=== PATIENT | female | born 2005 | race Two or more races ===

== ENCOUNTER 2024-10-27 08:15 | Outpatient (RCR) | payer MEDICAID, SELFPAY ==
--- NOTE | 2024-10-20 09:01 | XR_ITS ---
Examination: Biophysical profile, ultrasound Date and time of exam: October 20, 2024 at 0927 hrs. Indications: Hypothyroid on laboratory examination, diagnosis elevated BMI Technique: Multiple transabdominal sonographic images of the pelvis abdomen obtained. Attention is directed to the breathing movement, gross body movement, amniotic fluid volume and tone. Findings: Amniotic fluid index 9.7 cm Total biophysical profile is 8 of 8. breathing movement is 2. Gross body movement is 2. tone is 2. Qualitative amniotic fluid volume is 2 Impression: Biophysical profile is 8 of 8.
[2024-10-20 09:52] VITALS: BP 112/75; PULSE 85; RESP 16; TEMP 36.8
--- NOTE | 2024-10-27 08:25 | XR_ITS ---
Examination: Biophysical profile, ultrasound Date and time of exam: October 0842 hours INDICATIONS: Diagnosis hypothyroidism, diagnosis elevated BMI Technique: Multiple transabdominal sonographic images of the pelvis abdomen obtained. Attention is directed to the breathing movement, gross body movement, amniotic fluid volume and tone. Findings: Amniotic fluid index 18.3 cm Total biophysical profile is 8 of 8. breathing movement is 2. Gross body movement is 2. tone is 2. Qualitative amniotic fluid volume is 2 Impression: Biophysical profile is 8 of 8.
[2024-10-27 08:57] VITALS: BP 106/66; PULSE 60; RESP 19; TEMP 36.8
== END 2024-10-27 23:59 | disposition home or self-care (01) ==
LOC: S4S1 08:15
PROVIDERS: PCP Nurse Practitioner Women's Health; Referring Provider Nurse Practitioner Women's Health; Visit Provider Nurse Practitioner Women's Health
DX: O99.283 Endocrine, nutritional and metabolic diseases complicating pregnancy, third trimester (principal); E03.9 Hypothyroidism, unspecified; Z3A.38 38 weeks gestation of pregnancy
CPT/HCPCS: 59025; 76819

== ENCOUNTER 2024-10-28 21:30 | Inpatient (IN) | payer MEDICAID, SELFPAY ==
[2024-10-28 21:33] VITALS: BP 122/79; PULSE 96; TEMP 37
[2024-10-28 21:50] VITALS: BP 122/79; PULSE 96; RESP 18; RESP 98; TEMP 37.1
[2024-10-28 21:51] VITALS: BMI 44.5
[2024-10-28 22:47] VITALS: BP 106/61; PULSE 94
[2024-10-28 22:47] LABS: Basophils % (Auto) 0 % (0-2.5); Eosinophils # (Auto) 0.1 Thou/mm3 (0.0-0.5); Eosinophils % (Auto) 0 % (0-10); Hematocrit 30.7 % (36.0-46.0); Immature Granulocytes % (Auto) 1 % (0-0); Immature Granulocytes Auto 0.09 Thou/mm3 (0.00-0.00); Lymphocytes # (Auto) 2.8 Thou/mm3 (1.0-4.8); Lymphocytes % (Auto) 19 % (10-50); Mean Corpuscular HGB Conc 32.6 g/dl (31.0-37.0); Mean Corpuscular Hemoglobin 25.1 pg (25.0-35.0); Mean Corpuscular Volume 77 fL (80-100); Monocytes # (Auto) 0.9 Thou/mm3 (0.0-0.8); Monocytes % (Auto) 6 % (0-12); Neutrophils # (Auto) 10.6 Thou/mm3 (1.8-7.7); Neutrophils % (Auto) 73 % (37-80); Nucleated Red Blood Cell % 0 /100 WBC (0); Platelet Count 330 Thou/mm3 (140-440); RDW Standard Deviation 39.9 fL (36.4-46.3); Red Blood Count 3.99 Miln/mm3 (4.00-5.20); White Blood Count 14.4 Thou/mm3 (3.6-11.0)
[2024-10-28 23:00] VITALS: RESP 18; TEMP 37.2
[2024-10-28 23:33] LABS: Syphilis Nonreactive (Nonreactive)
[2024-10-28 23:58] VITALS: RESP 18; TEMP 37.2
[2024-10-29] VITALS (108 sets, daily range): BP systolic 74–178; BP diastolic 40–130; PULSE 73–144; RESP 17–23; TEMP 36.5–39; O2SAT 91–100
--- NOTE | 2024-10-29 01:09 | ESHP_ITS ---
Documentation for date of: 10/29/24 OB Labor/Induct. HPI History of Present Illness : 2 Para: 0 Term pregnancies: 0 pregnancies: 0 Living children: 0 History of Abortions: Spontaneous and Elective: 1 History of Vaginal deliveries: 0 History of sections: No History of : No BLAIRE: 11/10/24 Gestational Age (weeks): 38 Gestational Age (days): 2 History of present illness: Patient presents for loss of fluid, clear, that occurred at 1440 on 10/28/24. No regular/painful ctx. No vaginal bleeding. Normal movement. No fevers/chills. History of Present Dating criteria: based on 1st trimester US only Adequate Care: Yes Ultrasounds: normal mid trimester US Obstetrical complications: other (BMI 37, hypothyroidism on levothyroxine) Labs Labs: Positive: Rubella Titre and Negative: RPR, Hepatitis B, HIV, Chlamydia, Gonorrhea and Group Beta Strep Review of Systems Review of Systems Narrative Review of Systems: Review of Systems Systems Reviewed: All systems reviewed, normal except as documented Constitutional Constitutional: Denies body ache(s), Denies chills, Denies fever(s) and Denies headache(s) ENT Ears, Nose, Mouth, and Throat: Denies headache(s) and Denies vertigo Cardiovascular Cardiovascular: Denies chest pain, Denies palpitations, Denies dyspnea and Denies syncope Respiratory Respiratory: Denies cough, Denies dyspnea Gastrointestinal Gastrointestinal: Denies nausea and Denies vomiting Neurologic Neurologic: Denies convulsions, Denies headache(s), Denies other visual disturbances, Denies syncope and Denies vertigo Past Medical History Family History OTHER FAMILY HX: mother had breast cancer Surgical History SURGICAL: Negative Section OTHER SURGICAL HX: denies any Social History SOCIAL: No tobacco/ETOH/illicit drug use Past Medical History Comments PMH COMMENT: BMI 37 Hypothyroidism on levothyroxine Anemia Vitamin D deficiency Hyperlipidemia Hx of chlamydia 2021 Meds Home Medications and Allergies Home Medications ?Medication ?Instructions ?Recorded ?Confirmed ?Type folic acid 1 mg tablet 1 mg PO QDAY 10/20/24 History levothyroxine 25 mcg tablet 25 mcg PO QDAY hypothyroid ism 10/20/24 10/28/24 History vits no.130-ferrous fum 1 tab PO QDAY 10/20/2 5 10/28/24 History 27 mg iron-folic acid 800 mcg tablet ( Vitamin) Allergies Allergy/AdvReac Type Severity Reaction Status Date / Time No Known Allergies Allergy Verified 10/20/24 09:51 OB Exam Physical Exam Vital signs: Temp Pulse Resp BP 99 F 79 18 129/75 10/29/24 00:01 10/29/24 00:00 10/29/24 00:01 10/29/24 00:00 Narrative: General: well developed, well nourished, no acute distress, conversant Cardiac: normal heart rate Lungs: breathing without distress Abdomen: soft, gravid, non-tender, no rebound or guarding Extremities: no pain with palpation of calves Detailed Labor and Delivery Exam Dilation (cm): 2 Effacement (%): 50 Cervix position: posterior station: -3 Consistency: soft Presentation: Vertex Membranes: ruptured Amniotic fluid: clear monitor accelerations: 15x15 monitor decelerations: None terminologist variability: Moderate (11-25) Contraction frequency (min): irregular OB Results Labs 10/28/24 22:19 Labs: Short CBC 10/28/24 Range/Units 22:19 WBC 14.4 H (3.6-11.0) Thou/mm3 Hgb 10.0 L (12.0-16.0) g/dL Hct 30.7 L (36.0-46.0) % Plt Count 330 (140-440) Thou/mm3 OB Assessment & Plan Assessment and Plan (1) PROM (premature rupture of membranes): Status: Acute Assessment and plan: Kay is a 19yo with SIUP at 38&2wk presenting with PROM, clear at 1440 on 10/28/24. Amnisure positive. Irregular ctx. SCE: 50/-3. Vitals wnl, benign exam. Reassuring assessment. care with [facility]. Incomplete records in chart were reviewed. Normal glucose testing. PMhx/ complicated by: Obesity, starting BMI 37 Hypothyroidism since 2021, taking levothyroxine 25mcg QD Plan: -Admit to L&D -Establish IV, routine labs. -CEFM -Clear liquid diet -Survey Superintendent/consent re: and augmentation of labor -GBS status: negative -Anticipate -Safe to proceed (2) Obesity affecting : Status: Acute (3) Hypothyroid in , antepartum: Status: Acute (1) PROM (premature rupture of membranes) Qualifiers: PROM gestational age: full term PROM onset of labor timing: unspecified duration between rupture of membranes and onset of labor Qualified Code(s): O 42.92 - Full-term premature rupture of membranes, unspecified as to length of time between rupture and onset of labor (2) Obesity affecting Qualifiers: Obesity type affecting : unspecified obesity Trimester: third trimester Qualified Code(s): O99.213 - Obesity complicating , third trimester
[2024-10-29] MEDS: RINGERS LACTATED 1000 ML 1,000 ML 100 ML IV ×4 (01:42→07:29)
[2024-10-29] MEDS: MISOPROSTOL 50 mCg TABLET PO (02:14)
[2024-10-29 04:00] LABS: HIV (1&2) Antibody Rapid Non-Reactive
[2024-10-29] MEDS: Ampicillin Inj 2,000 MG in SODIUM CHLORIDE 0.9% (POP) 100 ML 200 MG IV ×3 (08:07→19:45)
[2024-10-29] MEDS: LEVOTHYROXINE SODIUM 25 MCG TABLET PO (08:08)
[2024-10-29] MEDS: ACETAMINOPHEN IVPB 1,000 MG/100 ML VIAL 250 MG IV (08:19)
--- NOTE | 2024-10-29 08:58 | PD.LDPN ---
Documentation for date of: 10/29/24 OB Labor Progress Note Pain Control Pain control: epidural Pelvic Exam Dilation (cm): 4 Effacement (%): 90 station: 0 Amniotic membrane status: Ruptured Contractions Monitor mode: Internal Contraction frequency: 1-3 Contraction duration: 40-60 Contraction phase: Contraction Contraction intensity: Moderate Status status: Category ll Comments: Fetus is tachycardia FHT 180s Assessment and Plan Assessment: induction ongoing Plan OB labor note: continuous present management Comments: Pt is prolonged ruptured, and has a fever 102.2 Ordered tylenol 1000mg IV x1 and Ampicillin 2g Q 6 and Gentamicin per pharmacy to dose. Placed internal monitors FSE and IUPC Cooling measures are initiated Anticipate Dr. Garnett updated
--- NOTE | 2024-10-29 09:32 | PD.LDPN ---
Documentation for date of: 10/29/24 OB Labor Progress Note Pain Control Pain control: epidural Pelvic Exam Dilation (cm): 4 Effacement (%): 90 station: 0 Amniotic membrane status: Ruptured Contractions Monitor mode: Internal Contraction frequency: 1-3 Contraction duration: 40-60 Contraction phase: Contraction Contraction intensity: Moderate Status status: Category ll Assessment and Plan Assessment: induction ongoing Plan OB labor note: Comments: Pt continues to have recurrent late decelerations Dr. Garnett updated and Dr. Garnett is on her way to perform C/S Discussed POC with pt, she understands and consents Handoff to Dr. Garnett
[2024-10-29] MEDS: TERBUTALINE SULF INJ 1 MG/ML VIAL 0.25 MG SC (09:43)
[2024-10-29] MEDS: FAMOTIDINE INJ 10 MG/ML VIAL 2 ML 20 MG IV (09:49)
[2024-10-29] MEDS: ceFAZolin/D5W 2 GM IV 2 GM/100 ML BAG IV (09:49)
[2024-10-29] MEDS: METOCLOPRAMIDE INJ 5 MG/ML VIAL 2 ML 10 MG IVP (09:49)
--- NOTE | 2024-10-29 10:56 | PD.LDPN ---
Documentation for date of: 10/29/24 OB Labor Progress Note Pain Control Comments: epidural Pelvic Exam Dilation (cm): 4 Effacement (%): 90 station: 0 Amniotic membrane status: Ruptured Comments: I got a call from KOBY Soliz at 09.05 am about this patient developing a fever and having recurrent variable deceleration , Accelerations were reported to be present and moderate variability.It was reported that position changes and Internals are placed , amnioinfusion is gpoing to start and bolus is given. I looked at the strip myself to follow up at 9.25 to see if resuscitation had worked , to find out that the patient was having recurrent late deceleration with tachysystole.Icalled Heydi WHALEN at 09.28 and Csection was called ,I was told terbutaline is ordered. Azithromysin was ordered and within 30 minutes Csection was called Contractions Monitor mode: Internal Contraction frequency: 1-3 Contraction phase: Contraction Contraction intensity: Moderate Status status: Category ll
[2024-10-29] MEDS: OXYTOCIN in NS 20 units 20 UNIT/1,000 ML BAG 125 UNIT IV (11:38)
[2024-10-29] MEDS: CLINDAMYCIN 900MG IVPB 900 MG in PRE-MIXED 1 BAG 50 MG IV ×2 (13:20→22:13)
[2024-10-29 17:31] LABS: Basophils % (Auto) 0 % (0-2.5); Eosinophils # (Auto) 0.1 Thou/mm3 (0.0-0.5); Eosinophils % (Auto) 0 % (0-10); Hematocrit 26.6 % (36.0-46.0); Immature Granulocytes % (Auto) 1 % (0-0); Immature Granulocytes Auto 0.16 Thou/mm3 (0.00-0.00); Lymphocytes # (Auto) 1.3 Thou/mm3 (1.0-4.8); Lymphocytes % (Auto) 5 % (10-50); Mean Corpuscular HGB Conc 32.7 g/dl (31.0-37.0); Mean Corpuscular Hemoglobin 25.1 pg (25.0-35.0); Mean Corpuscular Volume 77 fL (80-100); Monocytes # (Auto) 1.2 Thou/mm3 (0.0-0.8); Monocytes % (Auto) 5 % (0-12); Neutrophils # (Auto) 22.5 Thou/mm3 (1.8-7.7); Neutrophils % (Auto) 89 % (37-80); Nucleated Red Blood Cell % 0 /100 WBC (0); Platelet Count 262 Thou/mm3 (140-440); RDW Standard Deviation 41.1 fL (36.4-46.3); Red Blood Count 3.46 Miln/mm3 (4.00-5.20); White Blood Count 25.3 Thou/mm3 (3.6-11.0)
[2024-10-29 17:38] LABS: Hemoglobin 8.7 g/dL (12.0-16.0)
[2024-10-29 18:02] LABS: Band Neutrophils (Manual) 32 % (0-6); Lymphocytes (Manual) 5 % (20-44); Metamyelocytes (Manual) 1 % (0-0); Monocytes (Manual) 2 % (2-9); Neutrophils (Manual) 60 % (50-70)
[2024-10-29] MEDS: ACETAMINOPHEN 325 MG TABLET 650 MG PO (20:37)
--- NOTE | 2024-10-29 21:37 | PD.GYNPROC ---
Operative Note - ADMINISTRATIVE TECHNICIAN Procedure Date of procedure: 10/29/24 Procedure Performed: primary c section Indication: category 2 FHT recurrent late deceleration, unresponsive to resuscitation Prolonged rupture of mebranes presuptive chorioamnionitis Pre-Op diagnosis: same Post-Op diagnosis: same Anesthesia type: Spinal Procedure description: Informed consent was obtained and the patient was taken to the operating room.? Identity was confirmed by double identifiers and she was placed on the operating table.The abdomen and perineum were prepped in the usual sterile fashion and a Griggs catheter was placed to continuous drainage.? Sterile drapes were applied.??A Pfannenstiel skin incision was made with a scalpel and carried to the subcutaneous fat up to the rectus fascia.? The rectus fascia was incised on either side of the midline and the incisions were extended bilaterally.? The fascia was gently dissected off the ventral surface of the rectus muscle both superiorly and inferiorly. Carefully a peritioneal window created hysterotomy incision made and extended bluntly with finger. Rupture of membranes revealed clear fluid. The baby was found vertex presentation and was delivered via vertex. The umbilical cord , was doubly clamped, divided and the was handed over to the waiting team . The placenta delivered by controlled cord traction . The interior of the uterus was now thorougly cleaned of all blood and debris and membranes.?The? hysterotomy was closed using 0 vicryl suture in double layers. Once the repair was completed the hysterotomy was inspected, was noted to be adequately hemostatic. The rectus fascia was repaired using Vicryl 0 in a running fashion.? The subcutaneous layer was now, approximated with 3-0 vicryl in double layers.? All bleeding points were cauterized using the Bovie.?The skin was closed using 4-0 Monocryl in a subcuticular fashion.? The skin was cleaned and a sterile dressing was applied. The patient was now undraped, the abdomen and back were thoroughly cleaned and she was now transferred to the recovery room in a stable Estimated blood loss (ml): 500 Surgical staff Operation Date: 10/29/24 10:15 Case Staff PRODUCTION BOW MAKER: Jacob Morillo RN First Assistant: Tiffanie Walter Diagnosis Problem List Completed Was Problem List Reviewed/Reconciled?: Yes
--- NOTE | 2024-10-29 21:39 | OBDSUM_ITS ---
Data (King) Data Hx Section: No : 2 Para: 0 Term: 0 : 0 : 1 Delivery Data (King) Labor Data ROM Date: 10/28/24 ROM Time: 14:40 Rupture Type: SROM Amniotic Fluid: Clear Delivery Data Labor Onset Stage 1 Date: 10/29/24 Labor Onset Stage 1 Time: 07:20 Labor Onset Stage 2 Date: 10/29/24 Labor Onset Stage 2 Time: 10:13 Delivery Date: 10/29/24 Delivery Time: 10:13 Gestational age (weeks): 38 Gestational age (days): 2 Placenta Delivery Date: 10/29/24 Placenta Delivery Time: 10:14 Delivered by: Elizabeth Garnett Delivery nurse: Nicci Phillips Other staff at delivery: Nurse Other staff at delivery: 2nd Nurse Other staff at delivery: Other staff at delivery: Conchita Peterson Other staff at delivery: Mary Christianson Other staff at delivery: [email or web address] Delivery Method Delivery: Delivery Type: Primary Anesthesia Type Primary Anesthesia: Epidural Placenta Cord Sample: Cord Blood Obtained, Cord Gases Arterial and Cord Gases Venous EBL Estimated blood loss (ml): 500 [place] Data (King) [place] Data Gender: Male Infant Weight Grams: 3225 1 Minute Total: 3 5 Minute Total: 8 10 Minute Total: 9
--- NOTE | 2024-10-29 21:54 | PC.NURSE ---
Notified Dr. Garnett of pts low grade fever 100.2 and 100.0 1 hour post tylenol. IV Toradol okayed and morning CBC ordered.
[2024-10-29] MEDS: KETOROLAC INJ 30 MG/ML VIAL IVP (22:13)
[2024-10-29 22:29] LABS: Gentamicin, Random 1.7 mcg/mL (4.0-10.0)
--- NOTE | 2024-10-29 22:48 | EKG_ITS ---
[facility] Test Date: 2024-10-29 Pat Name: KEL REDDY [facility] Flat Lock Operator: DANNA : 2005 Requested By: Elizabeth Garnett Order Number: [id number] Reading MD: Elizabeth Garnett Measurements Intervals Clifford Rate: 111 P: 31 ID: [id number] QRS: 19 QRSD: 91 T: -4 QT: 310 QTc: 423 Interpretive Statements SINUS TACHYCARDIA ABNORMAL RHYTHM ECG No previous ECG available for comparison /[id number]
--- NOTE | 2024-10-29 22:49 | XR_ITS ---
Examination: AP chest single view Technique one AP portable upright chest single view Exam date and time: March 31, 2025 1109 hours Indications: Sepsis today Findings: Normal heart size No pneumonia identified. The osseous structures are intact Impression: No active disease
[2024-10-29] MEDS: SODIUM CHLORIDE 0.9% 1000 ML 1,000 ML 999 ML IV (22:50)
[2024-10-29 23:18] LABS: Lactate (Lactic Acid) 1.2 mMol/L (0.4-2.0)
[2024-10-29 23:29] LABS: Basophils # (Auto) 0.1 Thou/mm3 (0.0-0.2); Basophils % (Auto) 0 % (0-2.5); Eosinophils % (Auto) 0 % (0-10); Hematocrit 24.4 % (36.0-46.0); Immature Granulocytes % (Auto) 1 % (0-0); Immature Granulocytes Auto 0.32 Thou/mm3 (0.00-0.00); Lymphocytes # (Auto) 1.7 Thou/mm3 (1.0-4.8); Lymphocytes % (Auto) 7 % (10-50); Mean Corpuscular HGB Conc 32.8 g/dl (31.0-37.0); Mean Corpuscular Hemoglobin 25.3 pg (25.0-35.0); Mean Corpuscular Volume 77 fL (80-100); Monocytes # (Auto) 1.2 Thou/mm3 (0.0-0.8); Monocytes % (Auto) 5 % (0-12); Neutrophils # (Auto) 22.2 Thou/mm3 (1.8-7.7); Neutrophils % (Auto) 87 % (37-80); Nucleated Red Blood Cell % 0 /100 WBC (0); Platelet Count 311 Thou/mm3 (140-440); RDW Standard Deviation 41.9 fL (36.4-46.3); Red Blood Count 3.16 Miln/mm3 (4.00-5.20); White Blood Count 25.5 Thou/mm3 (3.6-11.0)
[2024-10-29 23:48] LABS: Collection Type, Urine Catheter; Squamous Epithelial Cell,Urine 0 /hpf (0-5)
[2024-10-29 23:55] LABS: B-Type Natriuretic Peptide 238 pg/mL (0-100)
[2024-10-29 23:56] LABS: Bilirubin,Urine Negative (Negative); Blood,Urine Negative (Negative); Clarity,Urine Clear (Clear/Hazy); Color,Urine Yellow (Lt Yel-Yel); Glucose, Urine Negative (Negative); Ketones,Urine Negative (Negative); Leukocyte Esterase,Urine Negative (Negative); Nitrite,Urine Negative (Negative); PH,Urine 6.5 (5.0-7.0); Protein,Urine Trace (Neg - Trace); RBC,Urine 3 /hpf (0-3); Specific Gravity,Urine 1.015 (1.001-1.035); WBC,Urine 2 /hpf (0-5)
[2024-10-29 23:57] LABS: Alanine Aminotransferase < 7 U/L (10-49); Albumin, Serum 2.7 gm/dL (3.5-5.0); Albumin/Globulin Ratio 1.3 (1.2-2.2); Alkaline Phosphatase 133 U/L (46-116); Anion Gap 8 (7-16); Aspartate Amino Transferase 18 U/L (0-34); BUN/Creatinine Ratio 12 Ratio (12-20); Bilirubin,Total 0.5 mg/dL (0.3-1.2); Blood Urea Nitrogen 7 mg/dL (9-23); Calcium 7.6 mg/dL (8.3-10.6); Calcium (Corrected) 8.6 mg/dL (8.5-10.1); Carbon Dioxide 21.4 mMol/L (20.0-31.0); Chloride 107 mMol/L (98-107); Creatinine (Component) 0.6 mg/dL (0.6-1.3); Estimated Creatinine Clearance 160.8 mL/min (>60); Globulin 2.1 gm/dL (2.3-3.5); Glucose 89 mg/dL (74-106); Osmolality,Calculated 268 (275-295); Potassium 3.7 mMol/L (3.4-5.1); Sodium 136 mMol/L (136-145); Total Protein 4.8 gm/dL (5.7-8.2); eGFR > 60 See Note
[2024-10-30] VITALS (16 sets, daily range): BP systolic 91–112; BP diastolic 56–82; PULSE 91–112; RESP 18–19; TEMP 36.7–37.8; O2SAT 97–100
[2024-10-30 00:03] LABS: Troponin I 0.084 ng/mL (0.0-0.045)
[2024-10-30] MEDS: SODIUM CHLORIDE 0.9% 1000 ML 1,000 ML 100 ML IV (00:15)
--- NOTE | 2024-10-30 01:27 | ESCONSULT_ITS ---
HPI Data of Consult Requesting Physician: Elizabeth Garnett MD Admitting Provider: Mary Mabry MD Attending Provider: Elizabeth Garnett MD Primary Care Provider: Physician No Primary/Family Consult Narrative Reason for consult: Elevated troponin History of present illness: HPI:A 19-year-old female patient 2 para 0 and known case of any medical condition except hypothyroidism which she takes levothyroxine 25 mcg was admitted to the [facility] yesterday patient undergone due to premature rupture of membrane for prolonged duration associated with maternal sepsis and distress despite the resuscitation by the [employer] [facility] doctors. At 12 AM 10/30/2024 rapid response was called for the patient and was found to have maternal sepsis with body temperature of 100.5, heart rate of 121 bpm blood pressure of 101/67. Patient was on triple antibiotics was given clindamycin, ampicillin, gentamicin. Upon sepsis workup patient was noted to have high WBCs of 25.5, hemoglobin of 8.0 which is stable since yesterday, platelets 311 noticed to have increased total bilirubin to 0.084 and BNP of 238. For that reason, we were consulted for elevated cardiac enzyme. On questioning patient denied any chest pain, shortness of breath, palpitation, lower extremities edema and denied any exertional dyspnea in the past. Patient does not have any family history of sudden cardiac and denied any cardiac disorders among family members. Patient medications only levothyroxine. Her current medication at this time is acetaminophen, ampicillin, clindamycin, gentamicin, levothyroxine, oxytocin PMH: As above PSX: yesterday PFX: No cardiac incidents among family members Social hx: Alcohol: Denied Tobacco: Denied Illicit drugs: Denied Allergies: No known allergies cc:: cc: Elizabeth Garnett MD Review of Systems Review of Systems Systems Reviewed: All systems reviewed, normal except as documented Exam Vital Signs Temp Pulse Resp BP Pulse Ox O2 Del Method O2 Flow Rate 98.9 F 103 H 19 91/56 L 98 Room Air 0 10/30/24 00:43 10/30/24 00:43 10/30/24 00:43 10/30/24 00:43 10/30/24 00:43 10/30/24 00:43 10/29/24 22:43 FiO2 0 10/29/24 22:43 Narrative Exam GEN: AOx3, able to speak full sentences, lying in bed comfortably HEENT: NC/AC, oral mucosa moist, neck supple CVS: RRR, S1-S2 present, no murmurs appreciated RESP: CTAB GI: surgical scar clean, soft,non distended, non tender, NBS MSK: able to move all 4 limbs, no lower extremity edema SKIN: warm and dry SAFETY TECHNICIAN: CN II-XII and Sensation grossly intact. Results Labs 10/29/24 22:59 10/29/24 22:59 Labs: Short CBC 10/29/24 10/29/24 Range/Units 17:16 22:59 WBC 25.3 H D 25.5 H (3.6-11.0) Thou/mm3 Hgb 8.7 L 8.0 L (12.0-16.0) g/dL Hct 26.6 L 24.4 L (36.0-46.0) % Plt Count 262 D 311 D (140-440) Thou/mm3 BMP 10/29/24 22:59 Sodium 136 Potassium 3.7 Chloride 107 Carbon Dioxide 21.4 BUN 7 L Creatinine 0.6 Glucose 89 Calcium 7.6 L Cardiac Enzymes 10/29/24 Range/Units 22:59 Troponin I 0.084 H* (0.0-0.045) ng/mL Liver Function 10/29/24 Range/Units 22:59 Total Bilirubin 0.5 (0.3-1.2) mg/dL AST 18 (0-34) U/L ALT < 7 L (10-49) U/L Alkaline Phosphatase 133 H (46-116) U/L Albumin 2.7 L (3.5-5.0) gm/dL Urine 10/29/24 Range/Units 23:25 Urine Color Yellow (Lt Yel-Yel) Urine Clarity Clear (Clear/Hazy) Urine pH 6.5 (5.0-7.0) Ur Specific [place] 1.015 (1.001-1.035) Urine Protein Trace (Neg - Trace) Urine Glucose (UA) Negative (Negative) Quality Measures Quality Measures sepsis Current suspected stage: sepsis Possible source: genitourinary Blood cultures ordered: yes Antibiotic ordered: Yes Medications Home Medications and Allergies Home Medications ?Medication ?Instructions ?Recorded ?Confirmed ?Type folic acid 1 mg tablet 1 mg PO QDAY 10/20/24 History levothyroxine 25 mcg tablet 25 mcg PO QDAY hypothyroid ism 10/20/24 10/28/24 History vits no.130-ferrous fum 1 tab PO QDAY 10/20/2 5 10/28/24 History 27 mg iron-folic acid 800 mcg tablet ( Vitamin) Allergies Allergy/AdvReac Type Severity Reaction Status Date / Time No Known Allergies Allergy Verified 10/29/24 10:49 Visit Medications Acetaminophen (Acetaminophen 325 Mg Tablet) 650 mg PO Q4H PRN PRN Reason: SEE COMMENTS Stop: 11/28/24 11:01 Last Admin: 10/29/24 20:37 Dose: 650 mg Hydrocodone Bitart/Acetaminophen (Hydrocodone/Apap 5/325 Tablet) 1 tab PO Q4HR PRN PRN Reason: Patient rated pain 7 to 8 Stop: 11/03/24 11:01 Lactated Ringer's (Lactated Ringers) 1,000 mls @ 100 mls/hr IV .Q10H [facility] Stop: 11/27/24 22:29 Last Admin: 10/29/24 07:29 Dose: 100 mls/hr Oxytocin/Sodium Chloride (Pitocin 20 Units In Ns) 20 unit in 1,000 mls @ 125 mls/hr IV .Q8H [facility] Stop: 11/27/24 22:29 Last Admin: 10/29/24 11:38 Dose: 125 mls/hr Ampicillin Sodium 2,000 mg/ (Sodium Chloride) 100 mls @ 200 mls/hr IV Q6HR [facility] Stop: 11/05/24 07:59 Last Admin: 10/29/24 19:45 Dose: 200 mls/hr Gentamicin Sulfate 340 mg/ (Sodium Chloride) 108.5 mls @ 108.5 mls/hr IV QDAY@1000 [facility] Stop: 11/05/24 09:59 Last Admin: 10/29/24 12:11 Dose: 108.5 mls/hr Clindamycin Phosphate 900 mg/ (IV Miscellaneous Supplies) 50 mls @ 50 mls/hr IV Q8HR [facility] Stop: 11/05/24 13:59 Last Admin: 10/29/24 22:13 Dose: 50 mls/hr Acetaminophen (Ofirmev Inj) 1,000 mg in 100 mls @ 250 mls/hr IV Q6H PRN PRN Reason: PAIN SCALE 1-3 (mild Stop: 10/30/24 02:35 Sodium Chloride (Ns) 1,000 mls @ 100 mls/hr IV .Q10H [facility] Stop: 11/29/24 00:09 Ibuprofen (Ibuprofen Tab 400 Mg Tablet) 800 mg PO Q8H PRN PRN Reason: SEE COMMENTS Stop: 11/28/24 11:01 Ketorolac Tromethamine (Ketorolac Inj 30 Mg/Ml Vial) 30 mg IVP Q6HR PRN PRN Reason: BREAKTHROUGH PAIN Stop: 11/03/24 21:49 Last Admin: 10/29/24 22:13 Dose: 30 mg Levothyroxine Sodium (Levothyroxine Sodium 25 Mcg Tablet) 25 mcg PO ACBR [facility] Stop: 11/28/24 05:59 Last Admin: 10/29/24 08:08 Dose: 25 mcg Pharmacy Consult (Pharmacy To Dose Gentamicin) 1 each IV QDAY PRN PRN Reason: CONSULT Stop: 11/28/24 08:59 Discontinued Medications Azithromycin (Azithromycin 250 Mg Tablet) 1,000 mg PO X1 ONE Stop: 10/29/24 10:01 Benzocaine (Benzo/Lano/Aloe (Dermoplast) 60 Gm Can) 1 spray TOP PRN PRN PRN Reason: PERINEAL DISCOMFORT Stop: 11/27/24 22:23 Diphtheria/Tetanus/Acell Pertussis (Diphth,Pertuss(Acell),Tet Vac 0.5 Ml Syr- Adult) 0.5 ml IMi .ONCE ONE Stop: 10/29/24 11:03 Famotidine (Famotidine Inj 10 Mg/Ml Vial 2 Ml) 20 mg IV X1 ONE Stop: 10/29/24 09:32 Last Admin: 10/29/24 09:49 Dose: 20 mg Fentanyl Citrate (Fentanyl Cit Inj 50 Mcg/Ml Amp 2ml) 100 mcg IV Q1HR PRN PRN Reason: PAIN SCALE 4-6 (Moderate Stop: 11/02/24 22:23 Lactated Ringer's (Lactated Ringers) 500 mls @ 999 mls/hr IV .Q31M PRN PRN Reason: HR tracing (Per Policy) Stop: 11/27/24 22:23 Tranexamic Acid (Tranexamic Acid Ivpb) 1,000 mg in 100 mls @ 200 mls/hr IV [id number] PRN PRN Reason: BLEEDING Acetaminophen (Ofirmev Inj) 1,000 mg in 100 mls @ 250 mls/hr IV Q6H [facility] Stop: 10/30/24 02:35 Last Admin: 10/29/24 08:19 Dose: 250 mls/hr Cefazolin Sodium (Ancef 2gm Ivpb) 2 gm in 100 mls @ 200 mls/hr IV X1 ONE Stop: 10/29/24 10:00 Last Admin: 10/29/24 09:49 Dose: 200 mls/hr Acetaminophen (Ofirmev Inj) 1,000 mg in 100 mls @ 250 mls/hr IV Q6H PRN PRN Reason: PAIN SCALE 1-3 (mild Stop: 10/30/24 13:57 Sodium Chloride (Ns) 1,000 mls @ 999 mls/hr IV .Q1H1M ONE Stop: 10/29/24 23:53 Last Admin: 10/29/24 22:50 Dose: 999 mls/hr Ibuprofen (Ibuprofen Tab 400 Mg Tablet) 800 mg PO X1 PRN PRN Reason: uterine cramping Lidocaine HCl (Lidocaine Hcl 1% 20 Ml Vial) 20 ml INFL X1 ONE Stop: 10/28/24 22:25 Measles/Mumps/Rubella Vaccine Live (Measles, Mumps & Rubella Vacc 0.5 Ml Vial) 0.5 ml SCi .ONCE ONE Stop: 10/29/24 11:03 Methylergonovine Maleate (Methylergonovine Inj 0.2 Mg/Ml Vial) 0.2 mg IM X1 PRN PRN Reason: Excessive Bleeding Metoclopramide HCl (Metoclopramide Inj 5 Mg/Ml Vial 2 Ml) 10 mg IVP X1 ONE; Protocol Stop: 10/29/24 09:32 Last Admin: 10/29/24 09:49 Dose: 10 mg Mineral Oil (Mineral Oil 30 Ml Udc) 30 ml TOP PRN PRN PRN Reason: To perineum for delivery. Stop: 11/27/24 22:23 Misoprostol (Misoprostol 200 Mcg Tablet) 800 mcg FL X1 PRN PRN Reason: BLEEDING Misoprostol (Misoprostol 50 Mcg Tablet) 50 mcg PO Q4H PRN PRN Reason: SEE COMMENTS Last Admin: 10/29/24 02:14 Dose: 50 mcg Oxytocin (Oxytocin Inj 10 Unit/Ml Vial) 10 unit IM X1 PRN PRN Reason: After placenta delivers Terbutaline Sulfate (Terbutaline Sulf Inj 1 Mg/Ml Vial) 0.25 mg SC UD PRN PRN Reason: LABOR Stop: 11/01/24 09:35 Last Admin: 10/29/24 09:43 Dose: 0.25 mg Assessment & Plan Plan Summary:A 19-year-old female patient 2 para 0 and known case of any medical condition except hypothyroidism which she takes levothyroxine 25 mcg was admitted to the [facility] yesterday patient undergone due to premature rupture of membrane for prolonged duration associated with maternal sepsis and distress despite the resuscitation by the [facility] doctors. During her hospitalization she had a rapid response code in which she was found to have maternal sepsis and elevated troponin. We were consulted for evaluation and management of elevated troponins. Assessment and plan #Elevated troponin most likely non-STEMI type II Patient was admitted to the hospital because of prolonged rupture of membrane, and was found to have sepsis with distress in which urged the [employer] doctor to do a Today patient spiked fever with SIRS response despite being on triple antibiotics of gentamicin, ampicillin, clindamycin with fever of 100.5 pulse rate of 1 20-1, WBC of 25.5 Blood culture and urine culture were sent by the primary team, patient was resuscitated with IV fluids Patient labs showed elevated troponin to 0.088 and BNP of 238 however patient denied any cardiac symptoms Plan ? Continue to trend troponin every 6 hours until downtrend ? Repeat EKG stat ? Repeat BMP after 6 hours ? Follow MD for critical lab value #Maternal sepsis #History of hypothyroidism #Premature rupture of membranes status post Plan Follow primary team recommendations Thank you for your consultation, please do not hesitate to reach out if you have any question or concern - Patient's plan and care discussed with my attending, Dr.Obad Nehemiah Edmonds MD Internal Medicine PGY-2 Attending Provider Attestation/Addendum 19 year old female with hypothyroidism who is in the hospital currently for premature rupture of membrane requesting C section who this morning had a POWER REACTOR OPERATOR for sepsis. Furthermore, patient noted to have fevers, tachycardia and maternal sepsis was initiated. In addition, work up reveal patient to have elevated troponin. Upon questioning it seems like the patient denies any chest pain and EKG with no ST changes. As a result, obgyn consulted us to give recommendation regarding the troponin. For now, plan to trend trops, serial EKG and obtain echocardiogram. It is likely that patient elevated troponin could be related to sepsis. Will continue to follow. I reviewed above note and agree with findings and plans. I have also personally examined the patient with medicine team and went over assessment and plan with medical team including machine learning intern and resident physician.
[2024-10-30] MEDS: Ampicillin Inj 2,000 MG in SODIUM CHLORIDE 0.9% (POP) 100 ML 200 MG IV ×4 (01:50→20:18)
--- NOTE | 2024-10-30 01:56 | PC.NURSE ---
0105 Dr. Edmonds at bedside for consults.
[2024-10-30 05:50] LABS: Basophils % (Auto) 0 % (0-2.5); Eosinophils % (Auto) 0 % (0-10); Immature Granulocytes % (Auto) 1 % (0-0); Immature Granulocytes Auto 0.16 Thou/mm3 (0.00-0.00); Lymphocytes # (Auto) 1.8 Thou/mm3 (1.0-4.8); Lymphocytes % (Auto) 9 % (10-50); Mean Corpuscular HGB Conc 33.2 g/dl (31.0-37.0); Mean Corpuscular Hemoglobin 25.7 pg (25.0-35.0); Mean Corpuscular Volume 78 fL (80-100); Monocytes % (Auto) 5 % (0-12); Neutrophils # (Auto) 17.1 Thou/mm3 (1.8-7.7); Neutrophils % (Auto) 85 % (37-80); Nucleated Red Blood Cell % 0 /100 WBC (0); Platelet Count 218 Thou/mm3 (140-440); RDW Standard Deviation 42.2 fL (36.4-46.3); Red Blood Count 2.84 Miln/mm3 (4.00-5.20); White Blood Count 20.2 Thou/mm3 (3.6-11.0)
[2024-10-30 05:52] LABS: Hemoglobin 7.3 g/dL (12.0-16.0)
[2024-10-30] MEDS: CLINDAMYCIN 900MG IVPB 900 MG in PRE-MIXED 1 BAG 50 MG IV ×3 (05:56→21:11)
[2024-10-30 05:57] LABS: Alanine Aminotransferase < 7 U/L (10-49); Albumin, Serum 2.4 gm/dL (3.5-5.0); Albumin/Globulin Ratio 1.3 (1.2-2.2); Alkaline Phosphatase 117 U/L (46-116); Anion Gap 6 (7-16); Aspartate Amino Transferase 15 U/L (0-34); BUN/Creatinine Ratio 13 Ratio (12-20); Bilirubin,Total 0.3 mg/dL (0.3-1.2); Blood Urea Nitrogen 8 mg/dL (9-23); Calcium 7.4 mg/dL (8.3-10.6); Calcium (Corrected) 8.7 mg/dL (8.5-10.1); Carbon Dioxide 22.6 mMol/L (20.0-31.0); Chloride 111 mMol/L (98-107); Creatinine (Component) 0.6 mg/dL (0.6-1.3); Estimated Creatinine Clearance 160.8 mL/min (>60); Globulin 1.9 gm/dL (2.3-3.5); Glucose 90 mg/dL (74-106); Osmolality,Calculated 277 (275-295); Potassium 3.8 mMol/L (3.4-5.1); Sodium 140 mMol/L (136-145); Total Protein 4.3 gm/dL (5.7-8.2); eGFR > 60 See Note
[2024-10-30] MEDS: LEVOTHYROXINE SODIUM 25 MCG TABLET PO (05:57)
[2024-10-30 05:58] LABS: Troponin I 0.047 ng/mL (0.0-0.045)
[2024-10-30] MEDS: ACETAMINOPHEN 325 MG TABLET 650 MG PO ×3 (08:10→18:09)
--- NOTE | 2024-10-30 09:14 | ESPR_ITS ---
Subjective Subjective Interval history: Patient denies any fever after yesterday night. Pt deneid any shortness of breath , chest pain . Has sirena schreiber which is well draining, adequate urine output. Novaginal clots, pain is well controlled , tolerating diet without nausea vomitting Exam Vital Signs Temp Pulse Resp BP Pulse Ox O2 Del Method O2 Flow Rate 99.9 F 98 18 95/59 L 97 Room Air 0 10/30/24 08:10 10/30/24 04:39 10/30/24 04:39 10/30/24 04:39 10/30/24 04:39 10/30/24 04:39 10/30/24 04:39 FiO2 0 10/30/24 04:39 Constitutional Constitutional: no acute distress Routine HEENT Exam Head: Present normocephalic and atraumatic Eye: Present EOMI and PERRL ENT: Present mucous membranes moist Routine Neck Exam Neck: Present supple and trachea midline Routine Respiratory Exam Respiratory: Present chest non-tender, lungs clear, normal breath sounds and no resp distress Routine Cardiovascular Exam Cardiovascular: Present RRR Routine Abdominal Exam Abdominal: Present soft and normoactive bowel sounds Routine Extremities Exam Extremities: Present full ROM Routine Skin Exam Skin: Present intact, dry and warm Routine Neurological Exam Neurological: Present alert, oriented X3 and CN II-XII intact Routine Psychiatric Exam Psychiatric: Present normal affect and normal thought process Objective Labs 10/30/24 04:20 10/30/24 04:20 Labs: Laboratory Results - last 24 hr 10/28/24 10/29/24 10/29/24 22:19 17:16 20:50 WBC 25.3 H D RBC 3.46 L Hgb 8.7 L Hct 26.6 L MCV 77 L MCH 25.1 MCHC 32.7 RDW Std Deviation 41.1 Plt Count 262 D Neut % (Auto) 89 H Lymph % (Auto) 5 L [place] % (Auto) 5 Eos % (Auto) 0 Baso % (Auto) 0 Neut # (Auto) 22.5 H Lymph # (Auto) 1.3 [place] # (Auto) 1.2 H Eos # (Auto) 0.1 Baso # (Auto) 0.0 Immature Gran # (Auto) 0.16 H Absolute Nucleated RBC 0.00 Immature Gran % 1 H Neutrophils % (Manual) 60 Monocytes % (Manual) 2 Metamyelocytes % 1 H Nucleated RBC % 0 Band Neutrophils 32 H Lymphocytes (Manual) 5 L PT INR APTT Sodium Potassium Chloride Carbon Dioxide Anion Gap BUN Creatinine Estim Creat Clear Calc eGFR BUN/Creatinine Ratio Glucose Calculated Osmolality Lactic Acid Calcium Corrected Calcium Total Bilirubin AST ALT Alkaline Phosphatase Troponin I B-Natriuretic Peptide Total Protein Albumin Globulin Albumin/Globulin Ratio Ur Collection Type Urine Color Urine Clarity Urine pH Ur Specific [place] Urine Protein Urine Glucose (UA) Urine Ketones Urine Blood Urine Nitrite Urine Bilirubin Urine Urobilinogen (Auto) Ur Leukocyte Esterase Urine RBC Urine WBC Ur Squamous Epith Cells Urine Bacteria Random Gentamicin 1.7 L Blood Type O Positive Antibody Screen NEGATIVE Crossmatch See Detail Blood Bank Wristband ID Yes 10/29/24 10/29/24 10/30/24 22:59 23:25 04:20 WBC 25.5 H 20.2 H D RBC 3.16 L 2.84 L Hgb 8.0 L 7.3 L Hct 24.4 L 22.0 L MCV 77 L 78 L MCH 25.3 25.7 MCHC 32.8 33.2 RDW Std Deviation 41.9 42.2 Plt Count 311 D 218 D Neut % (Auto) 87 H 85 H Lymph % (Auto) 7 L 9 L [place] % (Auto) 5 5 Eos % (Auto) 0 0 Baso % (Auto) 0 0 Neut # (Auto) 22.2 H 17.1 H Lymph # (Auto) 1.7 1.8 [place] # (Auto) 1.2 H 1.0 H Eos # (Auto) 0.0 0.0 Baso # (Auto) 0.1 0.0 Immature Gran # (Auto) 0.32 H 0.16 H Absolute Nucleated RBC 0.00 0.00 Immature Gran % 1 H 1 H Neutrophils % (Manual) Monocytes % (Manual) Metamyelocytes % Nucleated RBC % 0 0 Band Neutrophils Lymphocytes (Manual) PT 11.0 INR 1.0 APTT 33.0 Sodium 136 140 Potassium 3.7 3.8 Chloride 107 111 H Carbon Dioxide 21.4 22.6 Anion Gap 8 6 L BUN 7 L 8 L Creatinine 0.6 0.6 Estim Creat Clear Calc 160.8 160.8 eGFR > 60 > 60 BUN/Creatinine Ratio 12 13 Glucose 89 90 Calculated Osmolality 268 L 277 Lactic Acid 1.2 Calcium 7.6 L 7.4 L Corrected Calcium 8.6 8.7 Total Bilirubin 0.5 0.3 AST 18 15 ALT < 7 L < 7 L Alkaline Phosphatase 133 H 117 H Troponin I 0.084 H* 0.047 H* B-Natriuretic Peptide 238 H Total Protein 4.8 L 4.3 L Albumin 2.7 L 2.4 L Globulin 2.1 L 1.9 L Albumin/Globulin Ratio 1.3 1.3 Ur Collection Type Catheter Urine Color Yellow Urine Clarity Clear Urine pH 6.5 Ur Specific [place] 1.015 Urine Protein Trace Urine Glucose (UA) Negative Urine Ketones Negative Urine Blood Negative Urine Nitrite Negative Urine Bilirubin Negative Urine Urobilinogen (Auto) 2.0 Ur Leukocyte Esterase Negative Urine RBC 3 Urine WBC 2 Ur Squamous Epith Cells 0 Urine Bacteria None Random Gentamicin Blood Type Antibody Screen Crossmatch Blood Bank Wristband ID Assessment & Plan Problem List (1) PROM (premature rupture of membranes): Status: Acute (2) Obesity affecting : Status: Acute (3) Hypothyroid in , antepartum: Status: Acute (4) Anemia affecting : Status: Acute (5) Chorioamnionitis: Status: Acute Assessment Comment Assessment comment: 19 y/o p1, s/p PLTCS , for Cat 2 FHT , Chorioamnioniotis POD#1 Meeting all PO milestones Hb dropped to 7.5( likely hemodilution form IV site ) , EBL 300 , 2 units PRBC ordered regardless Chorioamnionitis , possible endoemtritis , is on triple antibiotic placental culture awaited rapid response as she met sepsis criteria Lactic acid normal elevateved troponins down trending medicine on consult Plan Comment Plan Comment: remove schreiber Ambulation encouraged Time Spent With Patient Time: Total time spent is greater than 50% in coordination of care (as documented) at patient's floor/unit and/or counseling patient:
[2024-10-30] MEDS: SIMETHICONE 80 MG CHEW PO (11:30)
[2024-10-30] MEDS: Milk Of Magnesia Susp 30 ML UDC PO (11:30)
--- NOTE | 2024-10-30 13:47 | PC.NURSE ---
Patient c/o being hot temperature checked 100.0, charge Nurse Keli made aware, she called Dr. Casey and orders were given to stop blood, full set of vitals taken and charted, no other symptoms, primary Nurse Valerie made aware
--- NOTE | 2024-10-30 14:06 | ESPR_ITS ---
Documentation for date of: 10/30/24 Subjective Subjective Interval history: 10/30/2024: No acute overnight events. Patient seen and assessed in hospital bed and remains asymptomatic. Troponin downtrending, likely elevated secondary to maternal sepsis. Will continue to monitor for any acutes changes. Exam Vital Signs Temp Pulse Resp BP Pulse Ox O2 Del Method O2 Flow Rate 100.0 F 98 18 110/75 100 Room Air 0 10/30/24 13:47 10/30/24 13:47 10/30/24 13:47 10/30/24 13:47 10/30/24 13:02 10/30/24 11:40 10/30/24 04:39 FiO2 0 10/30/24 04:39 Narrative Exam GEN: Awake, able to speak full sentences, lying in bed comfortably HEENT: NC/AC, oral mucosa moist, neck supple CVS: RRR, S1-S2 present, no murmurs appreciated RESP: CTAB GI: surgical scar clean, soft,non distended, non tender, NBS MSK: able to move all 4 limbs, no lower extremity edema [place]: A)x3,CN II-XII and no focal neurological deficits Objective Labs 10/30/24 04:20 10/30/24 04:20 Labs: Laboratory Results - last 24 hr 10/28/24 10/29/24 10/29/24 22:19 17:16 20:50 WBC 25.3 H D RBC 3.46 L Hgb 8.7 L Hct 26.6 L MCV 77 L MCH 25.1 MCHC 32.7 RDW Std Deviation 41.1 Plt Count 262 D Neut % (Auto) 89 H Lymph % (Auto) 5 L [place] % (Auto) 5 Eos % (Auto) 0 Baso % (Auto) 0 Neut # (Auto) 22.5 H Lymph # (Auto) 1.3 [place] # (Auto) 1.2 H Eos # (Auto) 0.1 Baso # (Auto) 0.0 Immature Gran # (Auto) 0.16 H Absolute Nucleated RBC 0.00 Immature Gran % 1 H Neutrophils % (Manual) 60 Monocytes % (Manual) 2 Metamyelocytes % 1 H Nucleated RBC % 0 Band Neutrophils 32 H Lymphocytes (Manual) 5 L PT INR APTT Sodium Potassium Chloride Carbon Dioxide Anion Gap BUN Creatinine Estim Creat Clear Calc eGFR BUN/Creatinine Ratio Glucose Calculated Osmolality Lactic Acid Calcium Corrected Calcium Total Bilirubin AST ALT Alkaline Phosphatase Troponin I B-Natriuretic Peptide Total Protein Albumin Globulin Albumin/Globulin Ratio Ur Collection Type Urine Color Urine Clarity Urine pH Ur Specific [place] Urine Protein Urine Glucose (UA) Urine Ketones Urine Blood Urine Nitrite Urine Bilirubin Urine Urobilinogen (Auto) Ur Leukocyte Esterase Urine RBC Urine WBC Ur Squamous Epith Cells Urine Bacteria Random Gentamicin 1.7 L Blood Type O Positive Antibody Screen NEGATIVE Crossmatch See Detail Blood Bank Wristband ID Yes 10/29/24 10/29/24 10/30/24 22:59 23:25 04:20 WBC 25.5 H 20.2 H D RBC 3.16 L 2.84 L Hgb 8.0 L 7.3 L Hct 24.4 L 22.0 L MCV 77 L 78 L MCH 25.3 25.7 MCHC 32.8 33.2 RDW Std Deviation 41.9 42.2 Plt Count 311 D 218 D Neut % (Auto) 87 H 85 H Lymph % (Auto) 7 L 9 L [place] % (Auto) 5 5 Eos % (Auto) 0 0 Baso % (Auto) 0 0 Neut # (Auto) 22.2 H 17.1 H Lymph # (Auto) 1.7 1.8 [place] # (Auto) 1.2 H 1.0 H Eos # (Auto) 0.0 0.0 Baso # (Auto) 0.1 0.0 Immature Gran # (Auto) 0.32 H 0.16 H Absolute Nucleated RBC 0.00 0.00 Immature Gran % 1 H 1 H Neutrophils % (Manual) Monocytes % (Manual) Metamyelocytes % Nucleated RBC % 0 0 Band Neutrophils Lymphocytes (Manual) PT 11.0 INR 1.0 APTT 33.0 Sodium 136 140 Potassium 3.7 3.8 Chloride 107 111 H Carbon Dioxide 21.4 22.6 Anion Gap 8 6 L BUN 7 L 8 L Creatinine 0.6 0.6 Estim Creat Clear Calc 160.8 160.8 eGFR > 60 > 60 BUN/Creatinine Ratio 12 13 Glucose 89 90 Calculated Osmolality 268 L 277 Lactic Acid 1.2 Calcium 7.6 L 7.4 L Corrected Calcium 8.6 8.7 Total Bilirubin 0.5 0.3 AST 18 15 ALT < 7 L < 7 L Alkaline Phosphatase 133 H 117 H Troponin I 0.084 H* 0.047 H* B-Natriuretic Peptide 238 H Total Protein 4.8 L 4.3 L Albumin 2.7 L 2.4 L Globulin 2.1 L 1.9 L Albumin/Globulin Ratio 1.3 1.3 Ur Collection Type Catheter Urine Color Yellow Urine Clarity Clear Urine pH 6.5 Ur Specific [place] 1.015 Urine Protein Trace Urine Glucose (UA) Negative Urine Ketones Negative Urine Blood Negative Urine Nitrite Negative Urine Bilirubin Negative Urine Urobilinogen (Auto) 2.0 Ur Leukocyte Esterase Negative Urine RBC 3 Urine WBC 2 Ur Squamous Epith Cells 0 Urine Bacteria None Random Gentamicin Blood Type Antibody Screen Crossmatch Blood Bank Wristband ID Quality Measures Quality Measures sepsis Current suspected stage: sepsis (Maternal sepsis - OB team to manage) Possible source: genitourinary Blood cultures ordered: yes Antibiotic ordered: Yes Assessment & Plan Assessment Current Active Medications: Generic Name Dose Route Start Last Admin Trade Name Freq PRN Reason Stop Dose Admin Acetaminophen 650 mg 10/29/24 11:02 10/30/24 13:04 Acetaminophen 325 Mg Tablet PO 11/28/24 11:01 650 mg Q4H PRN Administration SEE COMMENTS Hydrocodone Bitart/Acetaminophen 1 tab 10/29/24 11:02 Hydrocodone/Apap 5/325 Tablet PO 11/03/24 11:01 Q4HR PRN Patient rated pain 7 to 8 Lactated Ringer's 1,000 mls @ 100 mls/hr 10/28/24 22:30 10/29/24 07:29 Lactated Ringers IV 11/27/24 22:29 100 mls/hr .Q10H MAU Administration Oxytocin/Sodium Chloride 20 unit in 1,000 mls @ 125 mls/hr 10/28/24 22:30 10/29/24 11:38 Pitocin 20 Units In Ns IV 11/27/24 22:29 125 mls/hr .Q8H MAU Administration Ampicillin Sodium 2,000 mg/ 100 mls @ 200 mls/hr 10/29/24 08:00 10/30/24 07:56 Sodium Chloride IV 11/05/24 07:59 200 mls/hr Q6HR MAU Administration Gentamicin Sulfate 340 mg/ 108.5 mls @ 108.5 mls/hr 10/29/24 10:00 10/30/24 10:59 Sodium Chloride IV 11/05/24 09:59 108.5 mls/hr QDAY@1000 MAU Administration Clindamycin Phosphate 900 mg/ 50 mls @ 50 mls/hr 10/29/24 14:00 10/30/24 13:05 IV Miscellaneous Supplies IV 11/05/24 13:59 50 mls/hr Q8HR MAU Administration Sodium Chloride 1,000 mls @ 100 mls/hr 10/30/24 00:10 10/30/24 00:15 Ns IV 11/29/24 00:09 100 mls/hr .Q10H MAU Administration Ibuprofen 800 mg 10/29/24 11:02 Ibuprofen Tab 400 Mg Tablet PO 11/28/24 11:01 Q8H PRN SEE COMMENTS Ketorolac Tromethamine 30 mg 10/29/24 21:50 10/29/24 22:13 Ketorolac Inj 30 Mg/Ml Vial IVP 11/03/24 21:49 30 mg Q6HR PRN Administration BREAKTHROUGH PAIN Levothyroxine Sodium 25 mcg 10/29/24 06:00 10/30/24 05:57 Levothyroxine Sodium 25 Mcg Tablet PO 11/28/24 05:59 25 mcg ACBR MAU Administration Magnesium Hydroxide 30 ml 10/30/24 11:06 10/30/24 11:30 Milk Of Magnesia Susp 30 Ml Udc PO 11/29/24 11:05 30 ml Q12HR PRN Administration CONSTIPATION Protocol Pharmacy Consult 1 each 10/29/24 09:00 Pharmacy To Dose Gentamicin IV 11/28/24 08:59 QDAY PRN CONSULT Simethicone 80 mg 10/30/24 11:06 10/30/24 11:30 Simethicone 80 Mg Chew PO 11/29/24 11:05 80 mg QID PRN Administration GAS Plan 19-year-old female patient 2 para 0 and known case of any medical condition except hypothyroidism which she takes levothyroxine 25 mcg was admitted to the [facility] services yesterday patient undergone due to premature rupture of membrane for prolonged duration associated with maternal sepsis and distress despite the resuscitation by the [facility] doctors. During her hospitalization she had a rapid response code in which she was found to have maternal sepsis and elevated troponin. We were consulted for evaluation and management of elevated troponins. #Elevated troponin most likely non-STEMI type II, downtrending Patient was admitted to the hospital because of prolonged rupture of membrane, and was found to have sepsis with distress in which urged the [facility] doctor to do a Today patient spiked fever with SIRS response despite being on triple antibiotics of gentamicin, ampicillin, clindamycin with fever of 100.5 pulse rate of 1 20-1, WBC of 25.5 Blood culture and urine culture were sent by the primary team, patient was resuscitated with IV fluids Patient labs showed elevated troponin to 0.088 and BNP of 238 however patient denied any cardiac symptoms Troponin downtrended from 0.088 to 0.0.47 and patient continues to be asymptomatic Plan Stopped trending troponin Monitor for any acute changes #Maternal sepsis #History of hypothyroidism #Premature rupture of membranes status post Plan: Follow primary team recommendations Thank you for your consultation, please do not hesitate to reach out if you have any question or concern Patient's plan and care discussed with my attending, Dr. Lay and senior resident Dr. Jillian Sanches, PGY-1 -- ATTESTATION: I saw and examined the patient this morning, and I agree with current management stated by the resident. Will continue to monitor patient during their stay. Disclaimer: Despite multiple revisions, due to the dictation software being used, the document bellow may not be free of grammatical errors including phonetic/typographic errors. However, this does not deter from our commitment to providing health care in the patient's best interest in mind. Dr. Shimon Walsh, PGY-3 Attending Provider Attestation/Addendum I have examined the patient, reviewed labs and imaging findings, discussed the case with the resident(s), and reviewed entered orders. I agree with the plan of care as outlined in this note, with these additional summaries/recommendations: Patient seen at bedside. At this time patient denies chest pain, shortness of breath, and palpitations. Medicine team was consulted for elevated troponin which has peaked at 0.084. EKG reviewed and no evidence of acute ST changes indicative of acute ischemia. Elevated troponins most likely secondary to myocardial ischemia resulting from mismatched myocardial oxygen supply and demand that is not related to unstable coronary artery disease. We will continue to monitor the patient closely although no further workup needed at this time. If patient develops chest pain or shortness of breath recommend stat EKG and repeat troponin. No need for aspirin or statin therapy at this time. Patient has also received a diagnosis of maternal sepsis and is on appropriate antibiotic therapy. Leukocytosis improving. Blood and urine cultures taken and awaiting speciation. Thank you for allowing us to participate in this patient's care. We will continue to follow the patient with you. Dr. Alireza MD
[2024-10-30] MEDS: Furosemide 20 MG TABLET 10 MG PO (16:15)
[2024-10-30] MEDS: HYDROcodone/APAP 5/325 TABLET 1 TAB PO (20:01)
--- NOTE | 2024-10-30 21:40 | PD.LDPPPRG ---
Subjective Subjective Interval history: Patient is postop day #1 for was suspected CORHIO. On amp gent and clinda. Got 1 unit of blood and about another half a unit today but had a fever so transfusion was stopped. Patient called me to bedside to ask whether she needs to continue her antibiotics plan will be to keep the amp gent clinda on for 24 hours post last fever. Patient is reporting some right knee pain no history of knee surgery or an injury. Her legs are examined no signs of a DVT. Patient is very puffy. They had a sepsis alert called on her and I am sure she was given large amounts of IV fluids. Plan to give Lasix twice a day. Pain is not well-controlled so were going to do 2 [place] every 6 and alternate with Toradol every 6. Exam Vital Signs Temp Pulse Resp BP Pulse Ox O2 Del Method O2 Flow Rate 98.9 F 98 18 107/82 99 Room Air 0 10/30/24 15:33 10/30/24 16:15 10/30/24 15:33 10/30/24 16:15 10/30/24 15:33 10/30/24 15:33 10/30/24 04:39 FiO2 0 10/30/24 04:39 Narrative Exam Patient is alert and oriented x 3 surrounded by father the baby and her mother. Cooperative and in no apparent distress. Moving very slowly when I have her lay down to check her incision. Routine Abdominal Exam Abdominal: Present soft and wound (Incision is clean dry and intact. Fundus is firm no rebound no guarding no erythema) Routine Extremities Exam Extremities: Present edema (+3 edema) Objective Labs 10/30/24 04:20 10/30/24 04:20 Labs: Laboratory Results - last 24 hr 10/28/24 10/29/24 10/29/24 22:19 20:50 22:59 WBC 25.5 H RBC 3.16 L Hgb 8.0 L Hct 24.4 L MCV 77 L MCH 25.3 MCHC 32.8 RDW Std Deviation 41.9 Plt Count 311 D Neut % (Auto) 87 H Lymph % (Auto) 7 L [place] % (Auto) 5 Eos % (Auto) 0 Baso % (Auto) 0 Neut # (Auto) 22.2 H Lymph # (Auto) 1.7 [place] # (Auto) 1.2 H Eos # (Auto) 0.0 Baso # (Auto) 0.1 Immature Gran # (Auto) 0.32 H Absolute Nucleated RBC 0.00 Immature Gran % 1 H Nucleated RBC % 0 PT 11.0 INR 1.0 APTT 33.0 Sodium 136 Potassium 3.7 Chloride 107 Carbon Dioxide 21.4 Anion Gap 8 BUN 7 L Creatinine 0.6 Estim Creat Clear Calc 160.8 eGFR > 60 BUN/Creatinine Ratio 12 Glucose 89 Calculated Osmolality 268 L Lactic Acid 1.2 Calcium 7.6 L Corrected Calcium 8.6 Total Bilirubin 0.5 AST 18 ALT < 7 L Alkaline Phosphatase 133 H Troponin I 0.084 H* B-Natriuretic Peptide 238 H Total Protein 4.8 L Albumin 2.7 L Globulin 2.1 L Albumin/Globulin Ratio 1.3 Ur Collection Type Urine Color Urine Clarity Urine pH Ur Specific [place] Urine Protein Urine Glucose (UA) Urine Ketones Urine Blood Urine Nitrite Urine Bilirubin Urine Urobilinogen (Auto) Ur Leukocyte Esterase Urine RBC Urine WBC Ur Squamous Epith Cells Urine Bacteria Random Gentamicin 1.7 L Blood Type O Positive Antibody Screen NEGATIVE Direct Antiglob Test Crossmatch See Detail Blood Bank Wristband ID Yes Post-Trans Blood Type Post-Tx Visible Hemolys Post-Trans Icterus Post-Trans Ur Hemoglobin Reaction Pathol Consult 10/29/24 10/30/24 10/30/24 23:25 04:20 14:40 WBC 20.2 H D RBC 2.84 L Hgb 7.3 L Hct 22.0 L MCV 78 L MCH 25.7 MCHC 33.2 RDW Std Deviation 42.2 Plt Count 218 D Neut % (Auto) 85 H Lymph % (Auto) 9 L [place] % (Auto) 5 Eos % (Auto) 0 Baso % (Auto) 0 Neut # (Auto) 17.1 H Lymph # (Auto) 1.8 [place] # (Auto) 1.0 H Eos # (Auto) 0.0 Baso # (Auto) 0.0 Immature Gran # (Auto) 0.16 H Absolute Nucleated RBC 0.00 Immature Gran % 1 H Nucleated RBC % 0 PT INR APTT Sodium 140 Potassium 3.8 Chloride 111 H Carbon Dioxide 22.6 Anion Gap 6 L BUN 8 L Creatinine 0.6 Estim Creat Clear Calc 160.8 eGFR > 60 BUN/Creatinine Ratio 13 Glucose 90 Calculated Osmolality 277 Lactic Acid Calcium 7.4 L Corrected Calcium 8.7 Total Bilirubin 0.3 AST 15 ALT < 7 L Alkaline Phosphatase 117 H Troponin I 0.047 H* B-Natriuretic Peptide Total Protein 4.3 L Albumin 2.4 L Globulin 1.9 L Albumin/Globulin Ratio 1.3 Ur Collection Type Catheter Urine Color Yellow Urine Clarity Clear Urine pH 6.5 Ur Specific [place] 1.015 Urine Protein Trace Urine Glucose (UA) Negative Urine Ketones Negative Urine Blood Negative Urine Nitrite Negative Urine Bilirubin Negative Urine Urobilinogen (Auto) 2.0 Ur Leukocyte Esterase Negative Urine RBC 3 Urine WBC 2 Ur Squamous Epith Cells 0 Urine Bacteria None Random Gentamicin Blood Type Antibody Screen Direct Antiglob Test NEG Crossmatch Blood Bank Wristband ID Post-Trans Blood Type O POSITIVE Post-Tx Visible Hemolys Negative Post-Trans Icterus Negative Post-Trans Ur Hemoglobin Positive Reaction Pathol Consult Sent to Pathologist Assessment & Plan Problem List (1) PROM (premature rupture of membranes): Status: Acute (2) Obesity affecting : Status: Acute (3) Hypothyroid in , antepartum: Status: Acute (4) Anemia affecting : Problem details: Status post 1 unit packed red blood cells second unit was stopped early secondary to Fever. Plan check CBC in the morning Status: Acute (5) Chorioamnionitis: Problem details: On amp gent and clinda. Largely afebrile. Status: Acute (6) Delivery by section of full-term : Status: Acute Plan Comment Plan Comment: Okay to ambulate to the nursery. Alternate to [place] with Toradol. Lasix daily. Recheck CBC in the morning. Time Spent With Patient Time: Total time spent is greater than 50% in coordination of care (as documented) at patient's floor/unit and/or counseling patient: Time with patient: less than 15 minutes
[2024-10-31] VITALS (9 sets, daily range): BP systolic 107–121; BP diastolic 72–82; PULSE 83–100; RESP 16–20; TEMP 36.5–37.2; O2SAT 96–100
[2024-10-31] MEDS: Ampicillin Inj 2,000 MG in SODIUM CHLORIDE 0.9% (POP) 100 ML 200 MG IV ×3 (01:21→12:39)
[2024-10-31] MEDS: HYDROcodone/APAP 5/325 TABLET 1 TAB PO ×2 (05:24→09:41)
[2024-10-31] MEDS: LEVOTHYROXINE SODIUM 25 MCG TABLET PO (05:25)
[2024-10-31] MEDS: CLINDAMYCIN 900MG IVPB 900 MG in PRE-MIXED 1 BAG 50 MG IV ×2 (05:25→13:40)
[2024-10-31] MEDS: FUROSEMIDE INJ 10 MG/ML VIAL 2 ML 20 MG IVP ×2 (05:53→19:51)
--- NOTE | 2024-10-31 09:17 | PD.LDPPPRG ---
Subjective Subjective Interval history: Patient feels much better than last night. The 2 [place] are working for pain. We are going to alternate with Toradol. The pharmacy did not fill it last night. The plan will be to discontinue antibiotics at 1400 today. Patient is not up and showered yet. She received 1 unit of blood . Her hemoglobin this morning is still pending. Patient is up seeing her baby in the nursery and overall feels much better than last evening when I saw her. Patient is also voiding large amounts after her Lasix. Exam Vital Signs Temp Pulse Resp BP Pulse Ox O2 Del Method O2 Flow Rate 98.3 F 99 18 107/74 96 Room Air 0 10/31/24 07:40 10/31/24 07:40 10/31/24 07:40 10/31/24 07:40 10/31/24 07:40 10/31/24 07:40 10/30/24 04:39 FiO2 0 10/30/24 04:39 Narrative Exam Patient is alert and oriented x 3 in no apparent distress. Up sitting in a chair resting comfortably. Routine Abdominal Exam Abdominal: Present soft and surgical scars (Dressing removed incision clean dry and intact no erythema or swelling.) Comments: Fundus firm below umbilicus nontender. Detailed Lower Extremity Exam Comments: No cyanosis no erythema no signs of DVT. 1+ edema feet and hands. Objective Labs 10/30/24 04:20 10/30/24 04:20 Labs: Laboratory Results - last 24 hr 10/28/24 10/30/24 22:19 14:40 Blood Type O Positive Antibody Screen NEGATIVE Direct Antiglob Test NEG Crossmatch See Detail Blood Bank Wristband ID Yes Post-Trans Blood Type O POSITIVE Post-Tx Visible Hemolys Negative Post-Trans Icterus Negative Post-Trans Ur Hemoglobin Positive Reaction Pathol Consult Sent to Pathologist Assessment & Plan Problem List (1) Obesity affecting : Status: Acute (2) Hypothyroid in , antepartum: Status: Acute (3) Anemia affecting : Problem details: Status post 1 unit packed red blood cells second unit was stopped early secondary to Fever. Plan check CBC in the morning Status: Acute (4) Chorioamnionitis: Problem details: On amp gent and clinda. Largely afebrile. Status: Acute (5) Delivery by section of full-term infant: Status: Acute Assessment and plan: Patient is postop day #2 today. Plan is to ambulate encourage showering DC antibiotics at 1400. Remove IV lines. Recheck hemoglobin in morning. If patient is stable she can probably go home tomorrow. Time Spent With Patient Time: Total time spent is greater than 50% in coordination of care (as documented) at patient's floor/unit and/or counseling patient: Time with patient: less than 15 minutes
[2024-10-31 09:18] LABS: Basophils % (Auto) 0 % (0-2.5); Eosinophils # (Auto) 0.2 Thou/mm3 (0.0-0.5); Eosinophils % (Auto) 1 % (0-10); Hematocrit 30.8 % (36.0-46.0); Hemoglobin 10.1 g/dL (12.0-16.0); Immature Granulocytes % (Auto) 1 % (0-0); Immature Granulocytes Auto 0.26 Thou/mm3 (0.00-0.00); Lymphocytes # (Auto) 2.2 Thou/mm3 (1.0-4.8); Lymphocytes % (Auto) 9 % (10-50); Mean Corpuscular HGB Conc 32.8 g/dl (31.0-37.0); Mean Corpuscular Hemoglobin 25.8 pg (25.0-35.0); Mean Corpuscular Volume 79 fL (80-100); Monocytes # (Auto) 0.8 Thou/mm3 (0.0-0.8); Monocytes % (Auto) 4 % (0-12); Neutrophils # (Auto) 20.6 Thou/mm3 (1.8-7.7); Neutrophils % (Auto) 85 % (37-80); Nucleated Red Blood Cell % 0 /100 WBC (0); Platelet Count 303 Thou/mm3 (140-440); RDW Standard Deviation 44.2 fL (36.4-46.3); Red Blood Count 3.91 Miln/mm3 (4.00-5.20); White Blood Count 24.2 Thou/mm3 (3.6-11.0)
[2024-10-31] MEDS: PRENATAL VITAMIN/FE FUM/FA TABLET 1 TAB PO (09:38)
[2024-10-31] MEDS: KETOROLAC 10 MG TABLET PO ×3 (11:21→23:52)
--- NOTE | 2024-10-31 13:03 | ESPR_ITS ---
<Statement entered by Mela Anand MD - 10/31/24 13:47> Patient was seen and examined by me personally. I have directly supervised and reviewed documentation by the team resident and agree with its findings with any exceptions or additional findings as below. Plan of care was discussed with the attending, Dr. Lay. Troponin downtrended from 0.088 to 0.047 yesterday and patient continues to be asymptomatic, denying chest pain or any cardiac symptoms. Internal medicine team will sign off, please feel free to reach out for any further needs or questions. Care will be continued per primary OB team. Mela Anand, PGY-2 Documentation for date of: 10/31/24 Subjective Subjective Interval history: 10/31/2024: No acute overnight events to report. Patient seen and examined in hospital bed remains asymptomatic and denies having any concerning cardiac symptoms such as chest pain, shortness of breath or palpitations. Will sign off as internal medicine team; appreciate request for consultation. Exam Vital Signs Temp Pulse Resp BP Pulse Ox O2 Del Method O2 Flow Rate 97.7 F 96 16 112/78 99 Room Air 0 10/31/24 11:25 10/31/24 11:25 10/31/24 11:25 10/31/24 11:25 10/31/24 11:25 10/31/24 11:25 10/31/24 11:25 FiO2 0 10/31/24 11:25 Narrative Exam GEN: Awake, able to speak full sentences, lying in bed comfortably HEENT: NC/AC, oral mucosa moist, neck supple CVS: RRR, S1-S2 present, no murmurs appreciated RESP: CTAB GI: surgical scar clean, soft,non distended, non tender, NBS MSK: able to move all 4 limbs, no lower extremity edema RELAY ASSOCIATE: A)x3,CN II-XII and no focal neurological deficits Objective Labs 11/01/24 04:42 10/30/24 04:20 Labs: Laboratory Results - last 24 hr 10/28/24 10/30/24 10/31/24 22:19 14:40 08:44 WBC 24.2 H RBC 3.91 L Hgb 10.1 L D Hct 30.8 L MCV 79 L MCH 25.8 MCHC 32.8 RDW Std Deviation 44.2 Plt Count 303 D Neut % (Auto) 85 H Lymph % (Auto) 9 L [place] % (Auto) 4 Eos % (Auto) 1 Baso % (Auto) 0 Neut # (Auto) 20.6 H Lymph # (Auto) 2.2 [place] # (Auto) 0.8 Eos # (Auto) 0.2 Baso # (Auto) 0.0 Immature Gran # (Auto) 0.26 H Absolute Nucleated RBC 0.00 Immature Gran % 1 H Nucleated RBC % 0 Direct Antiglob Test NEG Crossmatch See Detail Post-Trans Blood Type O POSITIVE Post-Tx Visible Hemolys Negative Post-Trans Icterus Negative Post-Trans Ur Hemoglobin Positive Reaction Pathol Consult Sent to Pathologist Quality Measures Quality Measures sepsis Current suspected stage: ruled out Possible source: genitourinary Blood cultures ordered: yes Antibiotic ordered: Yes Assessment & Plan Assessment Current Active Medications: Generic Name Dose Route Start Last Admin Trade Name Freq PRN Reason Stop Dose Admin Acetaminophen 650 mg 10/29/24 11:02 10/30/24 18:09 Acetaminophen 325 Mg Tablet PO 11/28/24 11:01 650 mg Q4H PRN Administration SEE COMMENTS Hydrocodone Bitart/Acetaminophen 1 tab 10/29/24 11:02 10/31/24 09:41 Hydrocodone/Apap 5/325 Tablet PO 11/03/24 11:01 1 tab Q4HR PRN Administration Patient rated pain 7 to 8 Hydrocodone Bitart/Acetaminophen 2 tab 10/30/24 20:58 Hydrocodone/Apap 5/325 Tablet PO 11/04/24 20:57 Q6HR PRN pain 9-10 Furosemide 10 mg 10/30/24 16:00 10/31/24 09:16 Furosemide 20 Mg Tablet PO 11/29/24 15:59 Not Given QDAY MAU Furosemide 20 mg 10/31/24 06:00 10/31/24 05:53 Furosemide Inj 10 Mg/Ml Vial 2 Ml IVP 11/30/24 05:59 20 mg BIDD MAU Administration Lactated Ringer's 1,000 mls @ 100 mls/hr 10/28/24 22:30 10/29/24 07:29 Lactated Ringers IV 11/27/24 22:29 100 mls/hr .Q10H MAU Administration Oxytocin/Sodium Chloride 20 unit in 1,000 mls @ 125 mls/hr 10/28/24 22:30 10/29/24 11:38 Pitocin 20 Units In Ns IV 11/27/24 22:29 125 mls/hr .Q8H MAU Administration Ampicillin Sodium 2,000 mg/ 100 mls @ 200 mls/hr 10/29/24 08:00 10/31/24 12:39 Sodium Chloride IV 11/05/24 07:59 200 mls/hr Q6HR MAU Administration Gentamicin Sulfate 340 mg/ 108.5 mls @ 108.5 mls/hr 10/29/24 10:00 10/31/24 09:45 Sodium Chloride IV 11/05/24 09:59 108.5 mls/hr QDAY@1000 MAU Administration Clindamycin Phosphate 900 mg/ 50 mls @ 50 mls/hr 10/29/24 14:00 10/31/24 05:25 IV Miscellaneous Supplies IV 11/05/24 13:59 50 mls/hr Q8HR MAU Administration Sodium Chloride 1,000 mls @ 100 mls/hr 10/30/24 00:10 10/30/24 00:15 Ns IV 11/29/24 00:09 100 mls/hr .Q10H MAU Administration Ketorolac Tromethamine 10 mg 10/31/24 06:00 10/31/24 11:21 Ketorolac 10 Mg Tablet PO 11/05/24 05:59 10 mg Q6HR MAU Administration Levothyroxine Sodium 25 mcg 10/29/24 06:00 10/31/24 05:25 Levothyroxine Sodium 25 Mcg Tablet PO 11/28/24 05:59 25 mcg ACBR MAU Administration Magnesium Hydroxide 30 ml 10/30/24 11:06 10/30/24 11:30 Milk Of Magnesia Susp 30 Ml Udc PO 11/29/24 11:05 30 ml Q12HR PRN Administration CONSTIPATION Protocol Pharmacy Consult 1 each 10/29/24 09:00 Pharmacy To Dose Gentamicin IV 11/28/24 08:59 QDAY PRN CONSULT Multivit/Folic Acid/Iron 1 tab 10/31/24 09:00 10/31/24 09:38 Vitamin/Fe Fum/Fa Tablet PO 11/30/24 08:59 1 tab QDAY MAU Administration Simethicone 80 mg 10/30/24 11:06 10/30/24 11:30 Simethicone 80 Mg Chew PO 11/29/24 11:05 80 mg QID PRN Administration GAS Plan 19-year-old female patient 2 para 0 and known case of any medical condition except hypothyroidism which she takes levothyroxine 25 mcg was admitted to the [facility] yesterday patient undergone due to premature rupture of membrane for prolonged duration associated with maternal sepsis and distress despite the resuscitation by the [facility] doctors. During her hospitalization she had a rapid response code in which she was found to have maternal sepsis and elevated troponin. We were consulted for evaluation and management of elevated troponins. #Elevated troponin most likely non-STEMI type II, resolved Patient was admitted to the hospital because of prolonged rupture of membrane, and was found to have sepsis with distress in which urged the [facility] doctor to do a Today patient spiked fever with SIRS response despite being on triple antibiotics of gentamicin, ampicillin, clindamycin with fever of 100.5 pulse rate of 1 20-1, WBC of 25.5 Blood culture and urine culture were sent by the primary team, patient was resuscitated with IV fluids Patient labs showed elevated troponin to 0.088 and BNP of 238 however patient denied any cardiac symptoms Troponin downtrended from 0.088 to 0.0.47 and patient continues to be asymptomatic Plan: Internal medicine team will sign out; if patient develops new chest pain please obtain troponin, EKG, and consult internal medicine team. #Maternal sepsis #History of hypothyroidism #Premature rupture of membranes status post Plan: Follow primary team recommendations Thank you for your consultation, please do not hesitate to reach out if you have any question or concern Internal medicine team will sign out. Patient's plan and care discussed with my attending, Dr. Lay and senior resident Dr. Cheng Sanches, PGY-1 Attending Provider Attestation/Addendum I have examined the patient, reviewed labs and imaging findings, discussed the case with the resident(s), and reviewed entered orders. I agree with the plan of care as outlined in this note. Dr. Alireza MD
[2024-11-01 04:00] VITALS: BP 119/75; PULSE 78; RESP 18; TEMP 36.6; O2SAT 98
[2024-11-01] MEDS: KETOROLAC 10 MG TABLET PO (06:05)
[2024-11-01] MEDS: LEVOTHYROXINE SODIUM 25 MCG TABLET PO (06:05)
[2024-11-01 06:11] LABS: Basophils % (Auto) 0 % (0-2.5); Eosinophils # (Auto) 0.3 Thou/mm3 (0.0-0.5); Eosinophils % (Auto) 2 % (0-10); Hematocrit 28.9 % (36.0-46.0); Hemoglobin 9.5 g/dL (12.0-16.0); Immature Granulocytes % (Auto) 1 % (0-0); Immature Granulocytes Auto 0.14 Thou/mm3 (0.00-0.00); Lymphocytes # (Auto) 2.3 Thou/mm3 (1.0-4.8); Lymphocytes % (Auto) 16 % (10-50); Mean Corpuscular HGB Conc 32.9 g/dl (31.0-37.0); Mean Corpuscular Volume 79 fL (80-100); Monocytes # (Auto) 0.9 Thou/mm3 (0.0-0.8); Monocytes % (Auto) 6 % (0-12); Neutrophils # (Auto) 10.5 Thou/mm3 (1.8-7.7); Neutrophils % (Auto) 74 % (37-80); Nucleated Red Blood Cell % 0 /100 WBC (0); Platelet Count 286 Thou/mm3 (140-440); RDW Standard Deviation 44.9 fL (36.4-46.3); Red Blood Count 3.66 Miln/mm3 (4.00-5.20); White Blood Count 14.1 Thou/mm3 (3.6-11.0)
[2024-11-01 07:45] VITALS: BP 111/77; PULSE 94; RESP 17; TEMP 37.9; O2SAT 98
[2024-11-01 08:16] VITALS: TEMP 36.9
[2024-11-01] MEDS: PRENATAL VITAMIN/FE FUM/FA TABLET 1 TAB PO (08:26)
--- NOTE | 2024-11-01 09:21 | PD.LDDS ---
DS: Providers Provider Date of admission: 10/28/24 22:24 Primary care physician: Physician No Primary/Family Admitting Provider: Mary Mabry MD Attending Provider on Admission: Elizabeth Garnett MD Consults: 10/29/24 11:02 Referral Routine Comment: 10/30/24 00:19 Consult to Adult Hospitalist Stat Comment: Consulting Provider: Elizabeth Garnett Attending Provider on DC: Mary Mabry MD Discharging Provider: Mary Mabry MD DS: Diagnosis Discharge Diagnosis (1) Delivery by section of full-term infant: Status: Acute (2) Chorioamnionitis: Status: Acute (3) Postoperative anemia: Status: Acute Problem List Completed Was Problem List Reviewed/Reconciled?: Yes Summary/Hosp Course Brief History: Kay is a 19yo [id number] s/p uncomplicated PLTCS at term for Cat II FHRT with prolonged rupture of membranes, delivering on 10/30/24. She developed chorioamnionitis and was started on triple antibiotic therapy which was continued until >24hr afebrile. She received a significant amount of IVF and had resultant swelling which was treated with lasix. She was given a blood transfusion for fall of hgb from 10 to 7.3, received 1u pRBCs without issue but then had a fever during transfusion of 2nd unit, so it was discontinued. Final hgb 9.5. She is now meeting all milestones and feels ready for discharge home. She is ambulating without lightheadedness, tolerating regular diet no n/v, spontaneously voiding without issue. She has no chest pain or shortness of breath. No fevers or chills. Pain well controlled. Vitals normal, benign exam. Hemodynamically stable with no evidence of infection. Peripartum Data Procedures: Procedures Operation Date: 10/29/24 10:15 Actual Procedure Side Surgeon p in OB Not Applicable Elizabeth Garnett MD Status at Discharge Functional status at discharge: independent ambulation Overall status at discharge: patient is back to baseline Time Spent with Patient Time attestation: Total time spent providing and/or coordinating discharge services: Exam Vital Signs Temp Pulse Resp BP Pulse Ox O2 Del Method O2 Flow Rate 98.5 F 94 17 111/77 98 Room Air 0 11/01/24 08:16 11/01/24 07:45 11/01/24 07:45 11/01/24 07:45 11/01/24 07:45 11/01/24 07:45 11/01/24 07:45 FiO2 0 11/01/24 07:45 Narrative Exam General: well developed, well nourished, no acute distress, conversant Cardiac: normal heart rate Lungs: breathing without distress Abdomen: soft, post-gravid, non-tender, no rebound or guarding, pfannenstiel incision covered by dry/clean/intact prineo bandage. Incision well reapproximated. No erythema, drainage or induration. Fundus firm at u-2cm. Extremities: no pain with palpation of calves, 2+ edema of BLE Discharge Plan Plan Patient Disposition: HOME (Self Care) Patient condition on transfer: Stable Prescriptions/Referrals Prescriptions/Med Rec: New hydrocodone-acetaminophen 5-325 mg Tablet 1 tab PO Q6H MDD 4 tablets PRN (Reason: Patient rated pain 7 to 8) 10 Days Qty: 12 0RF ibuprofen 800 mg tablet 800 mg PO Q8H PRN (Reason: See Comments) 10 Days Qty: 30 0RF polyethylene glycol 3350 [Miralax] 17 gram powder in packet 17 g PO QDAY Qty: 14 0RF ferrous sulfate 325 mg (65 mg iron) tablet 325 mg PO QDAY Qty: 30 0RF Continued levothyroxine 25 mcg tablet 25 mcg PO QDAY Patient Comments: TAKE 1 TABLET BY MOUTH EVERY DAY FOR 60 DAYS Vitamin 27 mg iron- 800 mcg tablet 1 tab PO QDAY Patient Comments: TAKE 1 TABLET BY MOUTH EVERY DAY Discontinued folic acid 1 mg tablet 1 mg PO QDAY Referrals: No Primary/Family,Physician [Primary Care Provider] - Patient/Caregiver Discharge Instructions Discharge Activity: activity as tolerated and other Other Discharge Activity Instructions:: vaginal rest and no heavy lifting more than 10 pounds for 6 [address] while taking narcotic. keep incision clean and dry, do not submerge. Other Discharge Diet Instructions: Regular Education Materials: C Section Dc Print Language: Maltese Activity Restrictions/Additional Instructions: follow up in 1 week for incision check, call clinic for appointment Stand Alone Forms: Alexa Award Info., Patient Portal Info Letter Discharge Order Discharge Orders: Discharge (Routine); Ordered 11/01/24 Ordered By: Mary Mabry Planned Discharge Date 11/01/24 (2) Chorioamnionitis Qualifiers: Fetus number: single or unspecified fetus Trimester: third trimester Qualified Code(s): O41.1230 - Chorioamnionitis, third trimester, not applicable or unspecified
[2024-11-01 10:30] VITALS: TEMP 37
== END 2024-11-01 10:30 | disposition home or self-care (01) | DRG 540 ==
LOC: S4SX 10-29 10:07 → S4NX 10-29 10:08
PROVIDERS: Nurse Practitioner Women's Health; Obstetrics & Gynecology; Student in an Organized Health Care Education/Training Program; Admitting Provider Obstetrics & Gynecology; Visit Provider Student in an Organized Health Care Education/Training Program
PROC: 10D00Z1 Extraction of Products of Conception, Low, Open Approach (ICD-10-PCS; CPT 59514; principal; 2024-10-29 10:00)
DX: O42.02 Full-term premature rupture of membranes, onset of labor within 24 hours of rupture (principal); Z37.0 Single live birth; Z3A.38 38 weeks gestation of pregnancy; O99.214 Obesity complicating childbirth; O99.284 Endocrine, nutritional and metabolic diseases complicating childbirth; O99.02 Anemia complicating childbirth; O41.1230 Chorioamnionitis, third trimester, not applicable or unspecified; E03.9 Hypothyroidism, unspecified; R50.84 Febrile nonhemolytic transfusion reaction; O76 Abnormality in fetal heart rate and rhythm complicating labor and delivery; O26.893 Other specified pregnancy related conditions, third trimester; Z79.899 Other long term (current) drug therapy; M25.561 Pain in right knee
CPT/HCPCS: 36415; 59025; 59409; 71045; 80053; 80170; 81001; 83605; 83880; 84484; 85025; 85610; 85730; 86703; 86780; 86850; 86900; 86901; 86923; 87040; 87086; 93005; 94762; A4649; J0131; J0290; J0689; J0736; J1580; J1885; J1940; J2175; J2210; J2250; J2274; J2590; J2704; J2765; J2795; J3010; J3105; J3490; J7030; J7050; J7120; P9016; A9270; J2270

== ENCOUNTER 2024-11-10 09:35 | Outpatient (AMB) | payer MEDICAID, SELFPAY ==
[2024-11-10 10:40] VITALS: BP 101/71; PULSE 74; RESP 14; TEMP 36.6; O2SAT 97
--- NOTE | 2024-11-10 10:40 | AMB.GYNCLNOT ---
Vital Signs 11/10/24 10:40 Weight 94.574 kg Weight Measurement Method Standing Scale BP 101/71 Blood Pressure Source Automatic Cuff Blood Pressure Location Left Upper Arm Position Sitting Respiration 14 Pulse 74 Pulse Source Monitor Temp 97.9 F Temp Source Oral Pulse Oximetry (%) 97 Oxygen Delivery Method Room Air Allergies/Home Meds Allergies & Medications Allergies No Known Allergies Allergy (Verified 11/10/24 10:43) Medication Reconciliation levothyroxine 25 mcg tablet 25 mcg PO QDAY hypothyroidism 10/20/24 [History Confirmed 11/10/24] ferrous sulfate 325 mg (65 mg iron) tablet 325 mg PO QDAY #30 tabs 11/01/24 [Rx Confirmed 11/10/24] ibuprofen 800 mg tablet 800 mg PO Q8H PRN See Comments 10 days #30 tabs 11/01/24 [Rx] Intake Visit Data Collection New Patient or Established: Established Patient (seen at [facility] within 3 years) Reason for Visit:: POST OP/ C SECTION FOLLOW UP Seen by Clinical Staff ONLY (RN/MA): No Field Care Coordinator Required: No Do You Feel Safe at Home: Yes Authorities Contacted: N/A PCP or OBGYN visit in last 3 months: Yes Date of Last PCP or OBGYN visit: 11/01/24 Hx Now: No Are you currently on any form of Control: No Pain Present Currently: No Pain Scale Used: Lozano-Ryan/Numerical Pain scale:: 0 Smoking Status Smoking Status: Never smoker 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 1. Little interest or pleasure in doing things: not at all 2. Feeling down, depressed, or hopeless: not at all Total score: 0 PHQ-9 3. Trouble falling or staying asleep, or sleeping too much: Not at all 4. Feeling tired or having little energy: Not at all 5. Poor appetite or overeating: Not at all 6. Feeling bad about yourself - or that you are a failure or have let yourself or your family down: Not at all 7. Trouble concentrating on things, such as reading the newspaper or watching television: Not at all 8. Moving or speaking so slowly that other people could have noticed? - Or the opposite - being so fidgety or restless that you have been moving around a lot more than usual: not at all 9. Thoughts that you would be better off or of hurting yourself in some way: Not at all Total score: 0 Source: Developed by Drs. Tommie Walker, Gabby Tolentino, Javier Gerardo and colleagues, with an educational shawn from [employer]. Depression screen completed yes Social History Living Situation History Marital Status: Single Lives With: Family Housing: Apartment Tobacco History Smoking Status: Never smoker Second Hand Smoke Exposure: No Alcohol History Alcohol Intake: Never Substance Use History Substance Use: NONE Domestic Abuse History Do You Feel Safe at Home: Yes Past Medical History Past Medical History Have you ever been diagnosed with any of the following: Neurological Problems Meningitis: No Seizures: No Cardiology Problems Cardiac Arrhythmia: No Heart Murmur: No Respiratory Problems Asthma: No Bronchitis: No Stomache/Intestinal Problems Gall Bladder Disease: No Gastroesophageal Reflux Disease: No Genital/Urinary Problems Kidney Stones: No Reproductive Problems Breast Cancer: No Endometriosis: No Fibroids: No Genital Herpes: No Gonorrhea: No Pelvic Inflammatory Disease: No Polycystic Ovarian Syndrome: No Previous Pregnancies: Yes (SAB) Syphilis: No Musculoskeletal Problems Arthritis: No Rheumatoid Arthritis: No Scoliosis: No Fibromyalgia: No Head,Eye,Nose,Throat Problems Glaucoma: No Endocrine Problems Diabetes Mellitus Type 2: No Hyperthyroidism: No Hypothyroidism: Yes Thyroid Cancer: No Parathyroid Disease: No Blood Problems Anemia: Yes Clotting Problems: No Psychologic Problems Depression: No Anxiety: No Attention Deficit Disorder: No Attention Deficit Hyperactivity Disorder: No Depression: No Other Problems Hospitalization: Yes (Labor recently for labor delivery and ) Autoimmune Disease: No Blood Transfusions: Yes Anesthesia Reactions: No Cancer: No Surgical History Appendectomy: No Bariatric Surgery: No Breast Surgery: No Cholecystectomy: No Additional Surgical History: section 1 week ago History of Present Illness HPI Narrative Patient is a 19-year-old -0-1-1 status post primary 10/29/[address] Michaud. She had a for prolonged rupture of membranes and presumed chorioamnionitis with a category 2 tracing. Patient feels well today. Her son Baljit is doing well she is breast-feeding her only complaint is itching. She denies any heavy bleeding any shortness of breath any depression any fevers. Review of Systems Review of Systems Narrative Review of Systems: Patient denies fevers chills heavy vaginal bleeding. She does report itching all over her body but no rash. She is hardly taking any pain medications at this time. Systems Reviewed: All systems reviewed, normal except as documented Exam General Limitations: no limitations General Appearance: alert, in no apparent distress, comfortable, cooperative, healthy appearing and well groomed Head Head exam: atraumatic, normocephalic and normal inspection Neck Neck exam: Present normal inspection, full ROM and trachea midline Chest Chest inspection: Present normal inspection and symmetric chest wall rise Abdominal Abdominal exam: Present soft, normal bowel sounds and scar (Incision clean dry and intact no erythema fundal height approximately 12 cm) Extremities Extremities exam: Present normal inspection and full ROM Psych Psychiatric exam: Present normal affect and normal mood Skin Skin exam: Present warm, dry, intact and normal color Assessment & Plan Diagnosis / Problem List (1) Delivery by section of full-term : Status: Acute Plan: Postop day #12 status post primary patient is doing quite well encouraged ambulation no heavy lifting intercourse tampons or douching for 4 weeks follow-up in 4 weeks (2) Hypothyroidism: Status: Acute Qualifiers: Hypothyroidism type: acquired Qualified Code(s): E03.9 - Hypothyroidism, unspecified Plan: Patient on levothyroxine replacement. Follow-up with primary care (3) Postoperative anemia: Status: Acute Plan: Encouraged iron intake. Will recheck a hemoglobin at 6 weeks . Patient to call for any heavy vaginal bleeding. Additional Plan Follow Up: 5 Weeks Office Procedures OB Clinic LOC & Office Proc's Nursing/Assessment Patient Status: Established Patient OB Clinic Nursing Assessment: Medication Reconciliation, Update PMH in EMR and Vital Signs OB Clinic Coordination of Care: Complex Care and Chronic Disease 1-5, Consent,records obtained, informed consent, Education Simp Pt/Fam, Results/Orders obtained and Staff clarify orders Established Patient Charge Established Patient Point Assignment: 90 Established Patient Point Charge: EP Level 3 (80-115)
== END 2024-11-10 10:22 | disposition home or self-care (01) ==
LOC: HODSOBC 09:35
PROVIDERS: Supervising Provider Obstetrics & Gynecology; Visit Provider Obstetrics & Gynecology
DX: Z39.2 Encounter for routine postpartum follow-up (principal); O90.81 Anemia of the puerperium; D64.89 Other specified anemias; O99.285 Endocrine, nutritional and metabolic diseases complicating the puerperium; E03.9 Hypothyroidism, unspecified; Z79.890 Hormone replacement therapy
CPT/HCPCS: 99213; G0463

== ENCOUNTER 2024-12-11 10:20 | Outpatient (AMB) | payer MEDICAID, SELFPAY ==
--- NOTE | 2024-12-11 10:26 | GYNCLNT_ITS ---
Vital Signs 12/11/24 10:35 12/11/24 10:41 Height 1.52 m Height Method Measured Weight 92.533 kg 92.5 kg Weight Measurement Method Standing Scale BMI 39.8 BP 109/75 Blood Pressure Source Automatic Cuff Blood Pressure Location Left Upper Arm Position Sitting Respiration 14 Pulse 58 L Pulse Source Monitor Temp 97.6 F Temp Source Oral Pulse Oximetry (%) 99 Oxygen Delivery Method Room Air Allergies/Home Meds Allergies & Medications Allergies No Known Allergies Allergy (Verified 12/11/24 10:36) Medication Reconciliation levothyroxine 25 mcg tablet 25 mcg PO QDAY hypothyroidism 10/20/24 [History Confirmed 12/11/24] ferrous sulfate 325 mg (65 mg iron) tablet 325 mg PO QDAY #30 tabs 11/01/24 [Rx Confirmed 12/11/24] Intake Visit Data Collection New Patient or Established: Established Patient (seen at [facility] within 3 years) Reason for Visit:: Seen by Clinical Staff ONLY (RN/MA): No Building Cleaning Supervisor Required: No Do You Feel Safe at Home: Yes Authorities Contacted: N/A PCP or OBGYN visit in last 3 months: Yes Hx Now: No Are you currently on any form of Control: No Pain Present Currently: Yes Pain Location: Abdomen (LOWER ABDOMEN) Pain Scale Used: Lozano-Ryan/Numerical Pain scale:: 3 Smoking Status Smoking Status: Never smoker 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 1. Little interest or pleasure in doing things: not at all 2. Feeling down, depressed, or hopeless: not at all Total score: 0 PHQ-9 3. Trouble falling or staying asleep, or sleeping too much: Not at all 4. Feeling tired or having little energy: Not at all 5. Poor appetite or overeating: Not at all 6. Feeling bad about yourself - or that you are a failure or have let yourself or your family down: Not at all 7. Trouble concentrating on things, such as reading the newspaper or watching television: Not at all 8. Moving or speaking so slowly that other people could have noticed? - Or the opposite - being so fidgety or restless that you have been moving around a lot more than usual: not at all 9. Thoughts that you would be better off or of hurting yourself in some way: Not at all Total score: 0 Source: Developed by Drs. Tommie Walker, Gabby Tolentino, Javier Gerardo and colleagues, with an educational shawn from [employer]. Depression screen completed yes Social History Living Situation History Lives With: Family Housing: Apartment Tobacco History Smoking Status: Never smoker Second Hand Smoke Exposure: No Alcohol History Alcohol Intake: Never Substance Use History Substance Use: NONE Domestic Abuse History Do You Feel Safe at Home: Yes Past Medical History Past Medical History Have you ever been diagnosed with any of the following: Neurological Problems Cerebrovascular Accident (CVA): No Transient Ischemic Attacks (TIA): No Dementia: No Alzheimer's Disease: No Parkinson's Disease: No Brain Tumor: No Meningitis: No Seizures: No Cardiology Problems Myocardial Infarction: No Cardiac Arrhythmia: No Atrial Fibrillation: No Angina: No Heart Murmur: No Congestive Heart Failure: No Respiratory Problems Chronic Obstructive Pulmonary Disease (COPD): No Asthma: No Bronchitis: No Emphysema: No Hx Cough: No Cough: No Wheezing: No Chest Deformities: No Smoking: No Stomache/Intestinal Problems Liver Cancer: No Hepatitis: No Cirrhosis: No Pancreatic Cancer: No Pancreatitis: No Celiac Disease: No Gall Bladder Disease: No Gastroesophageal Reflux Disease: No Genital/Urinary Problems Renal Disease: No Kidney Stones: No Polycystic Kidney Disease: No Reproductive Problems Breast Cancer: No Endometriosis: No Fibroids: No Genital Herpes: No Gonorrhea: No Pelvic Inflammatory Disease: No Polycystic Ovarian Syndrome: No Previous Pregnancies: Yes (SAB) Syphilis: No Musculoskeletal Problems Muscular Dystrophy: No Myasthenia Gravis: No Marfan's Syndrome: No Bone Cancer: No Arthritis: No Rheumatoid Arthritis: No Scoliosis: No Fibromyalgia: No Head,Eye,Nose,Throat Problems Cataracts: No Glaucoma: No Blind: No Retinal Detachment: No Macular Degeneration: No Chronic Ear Infections: No Deafness: No Eye Prosthesis: No Endocrine Problems Diabetes Mellitus Type 1: No Diabetes Mellitus Type 2: No Hypoglycemia: No Eli's Syndrome: No Bruce's Disease: No Hyperthyroidism: No Hypothyroidism: Yes Thyroid Cancer: No Parathyroid Disease: No Blood Problems Anemia: Yes Leukemia: No Hemophilia: No Thalassemia: No Sickle Cell Disease: No Clotting Problems: No Psychologic Problems Schizophrenia: No Recreational Drug Use: No Bipolar Disorder: No Depression: No Anxiety: No Behavior Problems: No Self-Mutilation: No Attention Deficit Disorder: No Attention Deficit Hyperactivity Disorder: No Depression: No Other Problems Hospitalization: Yes (Labor recently for labor delivery and ) Down Syndrome: No Autism: No Developmental Delay: No Falls: No Blood Transfusions: Yes Blood Transfusion Reaction: No Anesthesia Reactions: No Cancer: No Surgical History Angioplasty: No Appendectomy: No Bariatric Surgery: No Breast Surgery: No Cholecystectomy: No Additional Surgical History: C SECTION History of Present Illness HPI Narrative The patient is a 19 y/o s/p Primary CS 10/29/[address] Garnett for prolonged ROM/presumptive chorio. Pt is doing well. She is breast feeding and supplementing a little with formula. 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 Her disability is up on 12/28/24. No heavy VB.No PP dpression. She was 240 lbs prior to delivery and now is 204 lbs. She has a hx of ovarian cysts and requests a follow up US to check on these. We will order in 02/17 when the baby is 12 weeks old. Pain Assessment Are you having any pain?: Yes Pain scale (0-10): 3 Weight: 92.5 kg Pre- Weight: 81.647 kg Symptoms Thyroid symptoms: Denies heat intolerance, cold intolerance, palpitations, change in hair, skin change or other Other symptoms: Denies constipation, incontinence, fever(s) or other Sexual Activity Resumed intercourse: No Control control method(s) used: undecided Menses resumed: No Infant Feeding Feeding method: combination Tobacco Smoking Status: Never smoker Alcohol Alcohol: does not drink Drugs/Substances Substances: denies use Return of menses: No Interim details: nursing and breast and bottle feeding concerns: none Review of Systems Constitutional Constitutional: Denies fever(s) Cardiovascular Cardiovascular: Denies palpitations Gastrointestinal Gastrointestinal: Denies constipation Integumentary/Breasts Skin/Breast: Denies change in hair Endocrine Endocrine: Denies cold intolerance, Denies heat intolerance and Denies palpitations Exam Narrative Physical exam: Abdomen Obese, soft, NT. Incision C/D/I. General Limitations: no limitations General Appearance: alert, in no apparent distress, comfortable, cooperative, healthy appearing, well developed and well groomed Neck Neck exam: Present normal inspection, full ROM and trachea midline Chest Chest inspection: Present normal inspection and symmetric chest wall rise Resp Respiratory exam: Present normal lung sounds bilaterally Card Cardiovascular exam: Present regular rate, normal rhythm and normal heart sounds Abdominal Abdominal exam: Present soft and normal bowel sounds Psych Psychiatric exam: Present normal affect and normal mood Skin Skin exam: Present warm, dry, intact and normal color Assessment & Plan Diagnosis / Problem List (1) Routine Follow-Up: (2) Hypothyroidism: Status: Acute Qualifiers: Hypothyroidism type: acquired Qualified Code(s): E03.9 - Hypothyroidism, unspecified (3) Postoperative anemia: Status: Acute Assessment and Plan: Check CBC (4) Delivery by section of full-term infant: Status: Acute Plan: OK to exercise. [place] with condoms. [facility] called in. Office Procedures OB Clinic LOC & Office Proc's Nursing/Assessment Patient Status: Established Patient OB Clinic Nursing Assessment: Medication Reconciliation, Update PMH in EMR and Vital Signs OB Clinic Coordination of Care: Complex Care and Chronic Disease 1-5, Consent,records obtained, informed consent, Education Simp Pt/Fam, Results/Orders obtained and Staff clarify orders Established Patient Charge Established Patient Point Assignment: 90 Established Patient Point Charge: EP Level 3 (80-115) Post Follow-up Visit Post Follow up Visit: Yes
[2024-12-11 10:35] VITALS: BP 109/75; PULSE 58; RESP 14; TEMP 36.4; O2SAT 99; BMI 39.8
== END 2024-12-11 11:21 | disposition home or self-care (01) ==
LOC: HODSOBC 10:20
PROVIDERS: Supervising Provider Obstetrics & Gynecology; Visit Provider Obstetrics & Gynecology
DX: Z39.2 Encounter for routine postpartum follow-up (principal); O99.285 Endocrine, nutritional and metabolic diseases complicating the puerperium; E03.9 Hypothyroidism, unspecified; D64.89 Other specified anemias; O90.81 Anemia of the puerperium; O99.215 Obesity complicating the puerperium; Z79.890 Hormone replacement therapy
CPT/HCPCS: 99213; G0463

== ENCOUNTER → 2024-12-11 | Outpatient (CLI) | payer MEDICAID, SELFPAY ==
[2024-12-11 12:28] LABS: Basophils % (Auto) 1 % (0-2.5); Eosinophils # (Auto) 0.2 Thou/mm3 (0.0-0.5); Eosinophils % (Auto) 4 % (0-10); Hemoglobin 11.6 g/dL (12.0-16.0); Immature Granulocytes % (Auto) 0 % (0-0); Immature Granulocytes Auto 0.01 Thou/mm3 (0.00-0.00); Lymphocytes # (Auto) 2.1 Thou/mm3 (1.0-4.8); Lymphocytes % (Auto) 35 % (10-50); Mean Corpuscular HGB Conc 32.2 g/dl (31.0-37.0); Mean Corpuscular Volume 84 fL (80-100); Monocytes # (Auto) 0.5 Thou/mm3 (0.0-0.8); Monocytes % (Auto) 9 % (0-12); Neutrophils # (Auto) 3.2 Thou/mm3 (1.8-7.7); Neutrophils % (Auto) 52 % (37-80); Nucleated Red Blood Cell % 0 /100 WBC (0); Platelet Count 324 Thou/mm3 (140-440); RDW Standard Deviation 56.4 fL (36.4-46.3); White Blood Count 6.1 Thou/mm3 (3.6-11.0)
[2024-12-11 12:53] LABS: Free T3 3.5 pg/mL (2.3-4.2); Free T4 (Free Thyroxine) 1.16 ng/dL (0.89-1.76)
== END | disposition home or self-care (01) ==
PROVIDERS: Referring Provider Obstetrics & Gynecology; Visit Provider Obstetrics & Gynecology
DX: E03.9 Hypothyroidism, unspecified (principal); D64.9 Anemia, unspecified
CPT/HCPCS: 36415; 84439; 84443; 84481; 85025

== ENCOUNTER 2024-12-30 08:32 | Outpatient (AMB) | payer MEDICAID, SELFPAY ==
[2024-12-30 08:38] VITALS: BP 110/79; PULSE 71; RESP 14; TEMP 36.5; O2SAT 98; BMI 40.1
--- NOTE | 2024-12-30 08:38 | AMB.GYNCLNOT ---
Vital Signs 12/30/24 08:38 Height 1.52 m Height Method Stated Weight 93.157 kg Weight Measurement Method Standing Scale BMI 40.1 BP 110/79 Blood Pressure Source Automatic Cuff Blood Pressure Location Left Upper Arm Position Sitting Respiration 14 Pulse 71 Pulse Source Monitor Temp 97.7 F Temp Source Oral Pulse Oximetry (%) 98 Oxygen Delivery Method Room Air Allergies/Home Meds Allergies & Medications Allergies No Known Allergies Allergy (Verified 12/30/24 08:39) Medication Reconciliation levothyroxine 25 mcg tablet 25 mcg PO QDAY hypothyroidism 10/20/24 [History Confirmed 12/30/24] ferrous sulfate 325 mg (65 mg iron) tablet 325 mg PO QDAY #30 tabs 11/01/24 [Rx Confirmed 12/30/24] norethindrone (contraceptive) 0.35 mg tablet 0.35 mg PO QDAY #84 tabs 12/11/24 [Rx Confirmed 12/30/24] Intake Visit Data Collection New Patient or Established: Established Patient (seen at [facility] within 3 years) Reason for Visit:: C Section check Seen by Clinical Staff ONLY (RN/MA): No Press Operator Automatic Required: No Do You Feel Safe at Home: Yes Authorities Contacted: N/A PCP or OBGYN visit in last 3 months: Yes Hx Now: No Are you currently on any form of Control: Yes Last menstrual period: 12/22/24 Pain Present Currently: No Pain Scale Used: Lozano-Ryan/Numerical Pain scale:: 0 Smoking Status Smoking Status: Never smoker Registration Coordinator history Registration Coordinator History Menstrual regularity: irregular Flow: heavy Monthly: No How many days does period last: 5 Age at menarche: 9 Currently sexually active: Yes Questionnaires Covid-19 Vaccine Questionnaire Has patient been vacinated for Covid-19 Have you been vacinated for Covid-19: Yes PHQ-9 PHQ-2 Over the last 2 weeks, how often have you been bothered by any of the following problems? 1. Little interest or pleasure in doing things: not at all 2. Feeling down, depressed, or hopeless: not at all Total score: 0 PHQ-9 3. Trouble falling or staying asleep, or sleeping too much: Not at all 4. Feeling tired or having little energy: Not at all 5. Poor appetite or overeating: Not at all 6. Feeling bad about yourself - or that you are a failure or have let yourself or your family down: Not at all 7. Trouble concentrating on things, such as reading the newspaper or watching television: Not at all 8. Moving or speaking so slowly that other people could have noticed? - Or the opposite - being so fidgety or restless that you have been moving around a lot more than usual: not at all 9. Thoughts that you would be better off or of hurting yourself in some way: Not at all Total score: 0 Source: Developed by Drs. Tommie Walker, Gabby Tolentino, Javier Gerardo and colleagues, with an educational shawn from [employer]. Depression screen completed yes Social History Living Situation History Lives With: Family Housing: Apartment Tobacco History Smoking Status: Never smoker Second Hand Smoke Exposure: No Alcohol History Alcohol Intake: Never Substance Use History Substance Use: NONE Domestic Abuse History Do You Feel Safe at Home: Yes Past Medical History Past Medical History Have you ever been diagnosed with any of the following: Neurological Problems Cerebrovascular Accident (CVA): No Transient Ischemic Attacks (TIA): No Dementia: No Alzheimer's Disease: No Parkinson's Disease: No Brain Tumor: No Meningitis: No Seizures: No Cardiology Problems Myocardial Infarction: No Cardiac Arrhythmia: No Atrial Fibrillation: No Angina: No Heart Murmur: No Congestive Heart Failure: No Respiratory Problems Chronic Obstructive Pulmonary Disease (COPD): No Asthma: No Bronchitis: No Emphysema: No Hx Cough: No Cough: No Wheezing: No Chest Deformities: No Smoking: No Stomache/Intestinal Problems Liver Cancer: No Hepatitis: No Cirrhosis: No Pancreatic Cancer: No Pancreatitis: No Celiac Disease: No Gall Bladder Disease: No Gastroesophageal Reflux Disease: No Genital/Urinary Problems Renal Disease: No Kidney Stones: No Polycystic Kidney Disease: No Reproductive Problems Breast Cancer: No Endometriosis: No Fibroids: No Genital Herpes: No Gonorrhea: No Pelvic Inflammatory Disease: No Polycystic Ovarian Syndrome: No Previous Pregnancies: Yes (SAB) Syphilis: No Musculoskeletal Problems Muscular Dystrophy: No Myasthenia Gravis: No Marfan's Syndrome: No Bone Cancer: No Arthritis: No Rheumatoid Arthritis: No Scoliosis: No Fibromyalgia: No Head,Eye,Nose,Throat Problems Cataracts: No Glaucoma: No Blind: No Retinal Detachment: No Macular Degeneration: No Chronic Ear Infections: No Deafness: No Eye Prosthesis: No Endocrine Problems Diabetes Mellitus Type 1: No Diabetes Mellitus Type 2: No Hypoglycemia: No Eli's Syndrome: No Bruce's Disease: No Hyperthyroidism: No Hypothyroidism: Yes Thyroid Cancer: No Parathyroid Disease: No Blood Problems Anemia: Yes Leukemia: No Hemophilia: No Thalassemia: No Sickle Cell Disease: No Clotting Problems: No Psychologic Problems Schizophrenia: No Recreational Drug Use: No Bipolar Disorder: No Depression: No Anxiety: No Behavior Problems: No Self-Mutilation: No Attention Deficit Disorder: No Attention Deficit Hyperactivity Disorder: No Depression: No Other Problems Hospitalization: Yes (Labor recently for labor delivery and ) Down Syndrome: No Autism: No Developmental Delay: No Falls: No Blood Transfusions: Yes Blood Transfusion Reaction: No Anesthesia Reactions: No Cancer: No Surgical History Angioplasty: No Appendectomy: No Bariatric Surgery: No Breast Surgery: No Cholecystectomy: No History of Present Illness HPI Narrative Patient is a 19-year-old -0-0-1 status post primary by Dr. Michaud 10/30/2024. She is already had her check. She is concerned because she states her wound has a pulling sensation in the midline and she feels a lump. She is concerned that it could have some type of disruption. Patient is breast and bottlefeeding baby and is doing well great. She denies any problems with depression. No fevers chills nausea vomiting diarrhea. Exam General Limitations: no limitations General Appearance: alert, in no apparent distress, comfortable, cooperative, healthy appearing and well groomed Abdominal Abdominal exam: Present soft and scar (Pfannenstiel incision appears well-healed there is a knot approximately 2 x 2 inches in the midline deep that is palpable. It is slightly tender to the touch. No erythema) Assessment & Plan Diagnosis / Problem List (1) Wound disruption: Status: Acute Qualifiers: Encounter type: initial encounter Qualified Code(s): T81.30XA - Disruption of wound, unspecified, initial encounter Plan: Patient reassured wound looks okay. Baby is 8 weeks old. Will check an ultrasound as patient does have a knot in the midline to ensure there is no hematoma or disruption of her wound. (2) Delivery by section of full-term : Status: Acute Assessment and Plan: Patient is 8 weeks post op. She can go back to all normal activities we will call her with results of her ultrasound Office Procedures OB Clinic LOC & Office Proc's Nursing/Assessment Patient Status: Established Patient OB Clinic Nursing Assessment: Medication Reconciliation, Update PMH in EMR and Vital Signs OB Clinic Coordination of Care: Complex Care and Chronic Disease 1-5, Consent,records obtained, informed consent, Education Simp Pt/Fam, Lab and Imaging orders and Staff clarify orders Miscellaneous Interventions: Dressing placement or removal Established Patient Charge Established Patient Point Assignment: 120 Established Patient Point Charge: EP Level 4 (120-155)
== END 2024-12-30 09:22 | disposition home or self-care (01) ==
LOC: HODSOBC 08:32
PROVIDERS: Supervising Provider Obstetrics & Gynecology; Visit Provider Obstetrics & Gynecology
DX: O90.0 Disruption of cesarean delivery wound (principal)
CPT/HCPCS: 99214; G0463

== ENCOUNTER → 2024-12-30 | Outpatient (CLI) | payer MEDICAID, SELFPAY ==
--- NOTE | 2024-12-30 10:10 | XR_ITS ---
Examination: Abdomen sonogram, complete Date and time of exam: December 30, 2024 1017 hours INDICATIONS: Pelvic pain beginning one week ago. Technique: Multiple real-time grayscale transabdominal sonographic images of the abdomen have been obtained. Findings: Normal gallbladder Normal common bile duct 0.2 cm Pancreatic head 2.0 cm Aorta not enlarged Liver 14.3 cm fatty infiltration no focal liver lesions Normal hepatopedal portal venous flow Patent IVC Right kidney 10.4 cm cortex 1.9 cm Left kidney 11.3 cm cortex 2.3 cm Moderate bilateral renal parenchymal scar formation Left kidney 6 mm midpole 7 mm lower pole calculi No hydronephrosis Spleen 10.0 cm IMPRESSION: Fatty liver Nonobstructing left renal calculi Moderate bilateral renal parenchyma scar formation
== END | disposition home or self-care (01) ==
PROVIDERS: PCP Family Medicine; Referring Provider Obstetrics & Gynecology; Visit Provider Obstetrics & Gynecology
DX: K76.0 Fatty (change of) liver, not elsewhere classified (principal); N20.0 Calculus of kidney; N28.89 Other specified disorders of kidney and ureter; T81.30XA Disruption of wound, unspecified, initial encounter
CPT/HCPCS: 76700

== ENCOUNTER → 2025-01-28 | Outpatient (CLI) | payer MEDICAID, SELFPAY ==
--- NOTE | 2025-01-28 13:00 | XR_ITS ---
Examination: Transvaginal ultrasound of the pelvis, complete Technique: Transvaginal sonographic images pelvis performed using anthony scale imaging Exam date and time: January 28, 2025 1310 hours INDICATIONS: November 2024 with hematoma history at the site FINDINGS: Uterus 9.1 cm x 5.8 cm Scarring in the anterior uterine body Mild free fluid in the cervix Endometrial stripe 0.9 cm Right ovary 1.9 cm arterial flow Left ovary 3.3 cm arterial flow 19 x 17 x 23 mm cyst with some internal echoes IMPRESSION: Scarring in the anterior uterine body, no uterine mass Left ovarian cyst 19 x 17 x 23 mm
== END | disposition home or self-care (01) ==
LOC: CDIM 12:50
PROVIDERS: Referring Provider Obstetrics & Gynecology; Visit Provider Obstetrics & Gynecology
DX: N85.8 Other specified noninflammatory disorders of uterus (principal); N83.202 Unspecified ovarian cyst, left side
CPT/HCPCS: 76830

== ENCOUNTER → 2025-08-05 | Outpatient (CLI) | payer MEDICAID, SELFPAY ==
--- NOTE | 2025-08-05 09:17 | XR_ITS ---
Examination: Lumbar spine, 5 views Technique: Lumbar spine AP, lateral, coned lateral lower lumbar spine, bilateral obliques 5 views Exam date and time: August 05, 2025, 0923 hours INDICATIONS: Low back pain years FINDINGS: Normal bone density. No lumbar fracture. No lumbar disc narrowing. No spondylolisthesis IMPRESSION: No lumbar fracture or arthritic change
== END | disposition home or self-care (01) ==
LOC: CDIM 08:54
PROVIDERS: Referring Provider Chiropractor; Visit Provider Chiropractor
DX: M54.41 Lumbago with sciatica, right side (principal); M99.03 Segmental and somatic dysfunction of lumbar region
CPT/HCPCS: 72110